=== PATIENT | female | born 1935 | race Caucasian/White ===

== ENCOUNTER 2019-12-27 15:02 | Inpatient (IN) | payer MEDICARE, SELFPAY ==
[2019-12-27] VITALS (10 sets, daily range): BP systolic 116–204; BP diastolic 37–65; PULSE 32–80; RESP 11–26; TEMP 36.8–37; O2SAT 90–100; BMI 34.6
--- NOTE | ~2019-12-27 | XR_ITS ---
XR chest 1V portable 12/27/2019 16:21 Indication: Altered mental status. Dyspnea. Procedure: AP portable chest Comparison: 03/10/2007 Findings: Cardiomegaly with mild interstitial edema. No pleural effusion or pneumothorax. No acute os seous abnormality. Impression: 1: Cardiomegaly with mild interstitial edema. Reviewed, dictated and finalized at location B. Impression: 1: Cardiomegaly with mild interstitial edema.
--- NOTE | ~2019-12-27 | XR_ITS ---
EXAMINATION: XR chest 1V portable DATE: 12/28/2019 18:08 INDICATION: Pacer placement. TECHNIQUE: A single frontal view of the chest was obtained on 2 radiographs. COMPARISON: Chest single view 12/27/2019 FINDINGS: A calcified right lung nodule and calcified right hilar lymph nodes are consistent with old granulomatous disease. No pleural effusion or pneumothorax. The heart size is normal. There is a lef t chest wall pacer with leads in the right atrium and right ventricle. IMPRESSION: 1. No acute cardiopulmonary disease. Reviewed, dictated and finalized at location A.
--- NOTE | ~2019-12-27 | CT_ITS ---
EXAMINATION: CT brain wo con DATE: 12/27/2019 15:50 INDICATION: Unresponsive. Found by neighbor. Altered mental status. TECHNIQUE: Computed tomography (CT) of the head was performed without intravenous contrast. The mA wa s adjusted according to patient size. Iterative reconstruction technique was employed. Exam dose: 68 1.00 mGy-cm total exam DLP. COMPARISON: None FINDINGS: No intracranial mass lesion or hemorrhage or cerebrovascular accident is evident. No midlin e shift or mass effect. Ventricular size is within normal limits. No subdural or epidural hematoma. Bilateral carotid siphon internal carotid artery calcifications. The mastoid air cells are normally developed and aerated. The paranasal sinuses are normally develope d and aerated. Bilateral hyperostosis frontalis interna. No skull fracture or bone destruction is detected. IMPRESSION: No skull fracture or acute intracranial abnormality Reviewed, dictated and finalized at Location A. Reviewed, dictated and finalized at location A.
--- NOTE | ~2019-12-27 | XR_ITS ---
EXAMINATION: XR chest 2V DATE: 12/29/2019 07:31 INDICATION: 24 hours postpacemaker insertion TECHNIQUE: frontal and lateral views of the chest were obtained. COMPARISON: Chest radiograph dated 12/28/2019 FINDINGS: Dual lead pacemaker seen with leads projecting over the expected locations of the right atrium and ri ght ventricle. Cardiomediastinal silhouette is normal. Dense mitral annular calcification. Tiny pleural effusion at the posterior sulcus of one of the lungs on the lateral projection, likely r ight. Calcified nodule at the right lung base consistent with old granulomatous disease. No other air space opacities, pulmonary edema or pneumothorax. Moderate degenerative skeletal changes at the bilat eral shoulders and upper lumbar spine. IMPRESSION: 1. Tiny right pleural effusion. Reviewed, dictated and finalized at location A.
--- NOTE | 2019-12-27 15:10 | ECG_ITS ---
Measurements Intervals [place] Rate: 45 P: LA: 0 QRS: -61 QRSD: 162 T: 94 QT: 538 QTc: 469 Interpretive Statements SINUS RHYTHM WITH 2ND DEGREE AV BLOCK, MOBITZ TYPE I RIGHT BUNDLE BRANCH BLOCK LEFT ANTERIOR FASCICULAR BLOCK BASELINE ARTIFACT- II, III, AVR, AVF, V2-V3 ABNORMAL ECG Electronically Signed On 12-27-2019 15:28:16 CDT by Maulik Seymour D.O.
--- NOTE | 2019-12-27 15:21 | ED.GENADULT ---
HPI - General Adult General Chief complaint: Unspecified Stated complaint: AMS Time Seen by Provider: 12/27/19 15:04 Source: RN notes reviewed History of Present Illness HPI narrative: Patient presents to emergency department via EMS for altered mental status. The history is per the patient's that is present. States that approximately 3:00 today they were sitting down when the patient seemed to tense up almost with mild seizure-like activity and went unresponsive. When EMS initially arrived the patient was unresponsive blood sugar was noted to be 160 and transferred to the ER for further evaluation. Per the the patient had no complaints prior to today. Patient was noted to be in heart block upon arrival to the ER Related Data Home Medications Medication Instructions Recorded Confirmed Caltrate 600 plus D 12/27/19 Centrum Silver 12/27/19 aspirin [Adult Low Dose Aspirin] 12/27/19 docusate sodium [Stool Softener] PO 12/27/19 duloxetine 60 mg PO DAILY 12/27/19 escitalopram oxalate 20 mg PO DAILY 12/27/19 fesoterodine [Toviaz] 8 mg PO DAILY 12/27/19 omeprazole 40 mg PO DAILY 12/27/19 simvastatin 10 mg PO HS 12/27/19 ziprasidone HCl 60 mg PO BID 12/27/19 ziprasidone HCl 80 mg PO BID 12/27/19 Allergies Allergy/AdvReac Type Severity Reaction Status Date / Time Penicillins Allergy Unknown Unverified 09/26/08 14:15 Sulfa (Sulfonamide Allergy Unknown Unverified 09/26/08 14:15 Antibiotics) tramadol Allergy Unknown Unverified 09/26/08 14:15 Review of Systems Review of Systems: ROS unobtainable: Yes unobtainable due to medical condition PMFSH Past Medical History Medical History Depression Tremor 2nd to depression meds Social History Social History (Updated 12/27/19 @ 17:33 by Evens Myles DO) Smoking status: Never smoker Exam Narrative: Exam Narrative: APPEARANCE: No acute distress, nontoxic, resting in bed EYES: Marija, eyes moving back and forth slowly HEENT: Normocephalic, atraumatic, OMM RESPIRATORY: No respiratory distress Clear to auscultation bilaterally with no rhonchi wheezing or rales. CARDIOVASCULAR: Bradycardic without murmurs rubs or gallops. ABDOMINAL: Soft, nontender, nondistended, no rebound or guarding MUSCULOSKELETAl: No clubbing, cyanosis or edema. NEURO: Unresponsive to painful and verbal stimuli, only in bed with eyes open, does not follow commands SKIN:: Warm, dry. No rashes lesions or abrasions Course Course Emergency Course: Patient given atropine with no change in heart rate. Cussed with patient's who is present. States that the patient is a DNR would be comfortable with pacemaker if needed At this time I decided to place the patient externally. The patient did have progressive improvement of her mentation following external pacing. Called and discussed with DIRECTOR OF RETAIL ANALYTICS and Hank for Dr. Branham presentation work-up. Dr. Branham's plans to come to the ER for further evaluation with plan to take patient for temporary pacer Called discussed with Dr. Wright presentation work-up he agrees with admission to the ICU Discussed with SERGIO Bell for Dr Contreras presentation work-up agrees with admission at this time Patient progressed became more awake awake and alert initially able to follow simple commands of squeezing and is now able to tell me her name and that she is at the hospital and answering questions. Discussed with patient plan for Patent Agent for pacer Discussed with patient and family results of workup and diagnosis. Discussed need for admission. Patient and family understand and agree to current treatment plan Vital Signs Vital signs: Vital Signs Pulse Rate 44 L 12/27/19 15:09 Respiratory Rate 18 12/27/19 15:09 Blood Pressure 204/43 H 12/27/19 15:09 Pulse Oximetry 90 12/27/19 15:09 Pulse Rate 60 12/27/19 15:54 Respiratory Rate 23 H 12/27/19 15:54 Blood Pressure 1
[2019-12-27 15:23] LABS: Base Excess ABG -6.5 mEq/l (+/-2.0); Fractional Inspired Oxygen 28 %; HCO3 ABG 18.3 mEq/l (22.0-26.0); Oxygen Content ABG 13.6 %vol (16.0-22.0); Oxygen Saturation ABG 93.8 % (95.0-100.0); Oxyhemoglobin 90.2 % THb (90.0-100.0); PCO2 ABG 33.6 mmHg (35.0-45.0); PO2 FiO2 Ratio Arterial Blood 2.54 %; Total Hemoglobin 10.7 g/dL (12.0-18.0); pH ABG 7.353 (7.350-7.450)
[2019-12-27 15:25] LABS: Device NASAL CANNULA; Modified Allen's Test Pass; Site Drawn RIGHT RADIAL
--- NOTE | 2019-12-27 15:26 | PC.NURSE ---
Patient received 0.5mg atropine at 1516 per EDP verbal order
--- NOTE | 2019-12-27 15:29 | PC.NURSE ---
Pacing at 60HR and 50mA per EDP verbal order.
[2019-12-27 15:31] LABS: Basophils Absolute Auto 0.1 K/mm3 (0.0-0.1); Basophils Percent Auto 0.7 % (0.2-1.2); Eosinophils Absolute Auto 0.3 K/mm3 (0-0.3); Eosinophils Percent Auto 3.8 % (0-4.4); Hemoglobin 10.9 g/dL (12.0-15.0); Immature Granulocyte Absolute 0.02 K/mm3 (0.00-0.031); Immature Granulocyte Percent A 0.2 % (0-0.5); Lymphocytes Absolute Auto 1.13 K/mm3 (0.9-3.2); Lymphocytes Percent Auto 12.5 % (18.3-44.2); Mean Corpuscular Hemoglobin 29.9 pg (26-34); Mean Corpuscular Volume 90.4 fl (80-100); Mean Platelet Volume 11.6 fl (7.4-10.4); Monocytes Absolute Auto 0.9 K/mm3 (0.1-0.6); Monocytes Percent Auto 10.2 % (2.6-8.5); Neutrophils Absolute Auto 6.6 K/mm3 (1.3-6.7); Neutrophils Percent Auto 72.6 % (45.5-73.1); Platelet Count Result 289 k/mm3 (150-375); Red Blood Count 3.65 M/mm3 (4.2-5.4); Red Cell Distribution Width 13.9 % (11.5-14.5)
[2019-12-27 15:46] LABS: Lactic Acid Reflex 1.5 mmol/L (0.7-2.1)
[2019-12-27 15:47] LABS: INR 1.1; Prothrombin Time 13.4 Seconds (11.1-14.7)
[2019-12-27 15:48] LABS: Partial Thromboplastin Time 46.4 SECONDS (22.3-36.8)
[2019-12-27 16:24] LABS: Alanine Aminotransferase 23 U/L (4-35); Albumin Level 3.4 g/dL (3.5-5.1); Alkaline Phosphatase 92 U/L (38-126); Aspartate Amino Transferase 36 U/L (14-36); Bilirubin,Total 0.6 mg/dL (0.2-1.3); Blood Urea Nitrogen 38 mg/dL (7-17); Calcium 8.9 mg/dL (8.4-10.2); Carbon Dioxide 26 mmol/L (22-30); Chloride 104 mmol/L (98-107); Creatine Kinase 36 U/L (30-135); Estimated CRCL calculation 26 ml/min; Estimated Glomerular Filt Rate 36; Glucose 169 mg/dL (65-105); Magnesium 1.4 mg/dL (1.6-2.3); Potassium 4.3 mmol/L (3.4-5.0); Sodium 136 mmol/L (137-145)
[2019-12-27 16:39] LABS: Troponin I 0.058 ng/mL (0.000-0.034)
[2019-12-27 16:42] LABS: Add Urine Microscopic? YES; Appearance Urine Clear (Clear); Bacteria Urine 1+ /hpf; Bilirubin Urine Negative (Negative); Blood Urine Negative (Negative); Color Urine Yellow (Yellow); Glucose Urine UA 1+ mg/dL (Negative); Ketones Urine Negative (Negative); Leukocyte Esterase Ur 1+ LEU/UL (Negative); Mucus Urine Rare /lpf; Nitrate Urine Negative (Negative); Protein Urine 3+ mg/dL (Negative); Specific Grav Ur 1.016 (1.001-1.035); Squamous Epithelial Cell Urine Few /hpf (Few); WBC Urine >75 /hpf
--- NOTE | 2019-12-27 16:54 | WPDCN ---
Assessment and Plan Assessment and plan (1) Mobitz type 2 second degree heart block: Code(s): I44.1 - Atrioventricular block, second degree Status: Acute Assessment and Plan: Patient with symptomatic second-degree AV block, need a emergent temporary pacemaker for hemodynamic stability. Mental status has improved somewhat. Will discuss permanent pacemaker implant with the patient which she has refused in the past. She is also DNR which I will discuss but she and Kehinde agreed to rescind that during the temporary pacemaker implant. Will check troponins, echo, and make sure nothing else is going on. Not on any rate limiting medications. (2) Altered mental status: Code(s): R41.82 - Altered mental status, unspecified Status: Acute Assessment and Plan: Probably secondary to her poor cardiac output related to heart block. HPI Data of Consult Date/Time: 12/27/19 16:54 Primary Care Provider: AUTO TIRE RECAPPER PHYSICIAN Consult Narrative Narrative: Sana Mooney is a 84 year old female whom I was asked to see emergently for syncope, altered mental status and a heart rate of 30. She is is 2nd degree AVB and Dr. Myles applied external pacing which has helped her mental status. Her head CT was neg for bleed. She is being taken emergently to the dairy and food laboratory assistant for a temporary pacemaker. The patient's spouse Kehinde, says that her sharepoint admin at [facility] (Dr. Banegas? ) has recommend pacemaker to her but she has refused and wanted to be a DNR. She had episode of syncope about 6 months ago. Otherwise she leads a pretty normal life, up and around the house with no particular problems. Her main problem has been depression.No history of any other heart trouble, chest pain or shortness of breath. The patient currently denies any chest pain or shortness of breath. Today she was sitting in a chair, looked up and said she felt bad, and passed out. Kehinde said there was some seizure-like activity and she became unresponsive. EMS was called. pick up truck driver is Dr. Tracie Pro, [facility]' Review of Systems Review of Systems: Narrative: Much of the review of systems is obtained from the patient's spouse, Kehinde and the ER MD Dr. Myles. ROS unobtainable: Yes unobtainable due to mental status Eyes: Eyes: Reports no additional eye complaints ENT: Denies nasal congestion Cardiovascular: Cardiovascular: Denies chest pain, Denies pedal edema, Denies lightheadedness and Denies palpitations Respiratory: Respiratory: Denies chest congestion, Denies cough and Denies dyspnea Gastrointestinal: Gastrointestinal: Denies abdominal pain Musculoskeletal: Musculoskeletal: Reports arthralgias Integumentary/Breasts: Skin/Breast: Reports system reviewed and no additional complaints, except as docu Neurologic: Reports confusion ( altered mental status today.) Comments: Patient has a tremor but not Parkinson's disease; apparently secondary to her depression meds. FOR[facility]LY [facility], LATER [facility] Past Medical History Medical History (Updated 12/27/19 @ 18:39 by Felicity Branham MD) Depression Restless leg syndrome Tremor 2nd to depression meds Surgical History Surgical History (Updated 12/27/19 @ 18:39 by Felicity Branham MD) H/O: hysterectomy For uterine cancer Family History Family History (Updated 12/27/19 @ 18:40 by Felicity Branham MD) Father Acute myocardial infarction Mother Old age Social History Social History (Updated 12/27/19 @ 18:40 by Felicity Branham MD) Social History: Used to work for the [employer]. to Kehinde. No children. Smoking status: Never smoker Alcohol intake: never Substance use: never Gender identity (if verbalized by the patient): Female Spiritual care concerns: No Meds Home Medications and Allergies Home Medications Medication Instructions Recorded Confirmed Type Caltrate 600 plus D 12/27/19 History Centrum Silver 12/27/19 History aspirin [Adult
--- NOTE | 2019-12-27 16:54 | WPDMODSED ---
Moderate Sedation Note-Pt Data Patient Data Diagnosis: Syncope, 2nd degree AVB Present Complaint: Syncope, altered mental status Procedure to be performed/Plan: Temporary transvenous pacemaker Allergies Allergy/AdvReac Type Severity Reaction Status Date / Time Penicillins Allergy Unknown Unverified 09/26/08 14:15 Sulfa (Sulfonamide Allergy Unknown Unverified 09/26/08 14:15 Antibiotics) tramadol Allergy Unknown Unverified 09/26/08 14:15 Home Medications Medication Instructions Recorded Confirmed Type Caltrate 600 plus D 12/27/19 History Centrum Silver 12/27/19 History aspirin [Adult Low Dose Aspirin] 12/27/19 History docusate sodium [Stool Softener] PO 12/27/19 History duloxetine 60 mg PO DAILY 12/27/19 History escitalopram oxalate 20 mg PO DAILY 12/27/19 History fesoterodine [Toviaz] 8 mg PO DAILY 12/27/19 History omeprazole 40 mg PO DAILY 12/27/19 History simvastatin 10 mg PO HS 12/27/19 History ziprasidone HCl 60 mg PO BID 12/27/19 History ziprasidone HCl 80 mg PO BID 12/27/19 History Current Medications: Active Medications Magnesium Sulfate (Magnesium Sulf 2 Gm/Water 50ml) 2 gm in 50 mls @ 50 mls/hr IVPB ONCE ONE Stop: 12/27/19 17:24 Sedation/Anesthesia: No previous sedation/anesthesia problems (including family history). [facility] Past Medical History Medical History (Updated 12/27/19 @ 16:56 by Felicity Branham MD) Depression Tremor 2nd to depression meds Mod Sed Physical Exam Physical Exam Pre Procedural Exam: Normal: Eyes, Ears, Nose, Neck, Throat, Airway, Lungs, Heart Size, Heart Rhythm, Abdomen, Liver, Extremities and Skin and Variation: Appearance (Appears lethargic but answers some questions), Heart Rate (Bradycardic) and Neuro Exam (Cognitive impairment, tremor) Hours since solid foods: 4 Hours since liquid intake: 4 Internal Medicine - PN: Obj Da Vital Signs Vital Signs: Vital Signs - 24 hr 12/27/19 15:09 12/27/19 15:21 12/27/19 15:23 Pulse Rate 44 L 32 L 32 L Respiratory Rate 18 11 L Blood Pressure 204/43 H 170/37 H Pulse Oximetry 90 92 12/27/19 15:26 12/27/19 15:54 Pulse Rate 32 L 60 Respiratory Rate 18 23 H Blood Pressure 170/37 H 137/47 L Pulse Oximetry 92 100 Meds/Results Medications: Active Medications Generic Name Dose Route Start Last Admin Trade Name Levi PRN Reason Stop Dose Admin Magnesium Sulfate 2 gm in 50 mls @ 50 mls/hr 12/27/19 16:25 Magnesium Sulf 2 Gm/Water 50ml IVPB 12/27/19 17:24 ONCE ONE Radiology Results: ITS Impressions Head CT 12/27/19 15:52 IMPRESSION: No skull fracture or acute intracranial abnormality Chest X-Ray 12/27/19 16:22 Impression: 1: Cardiomegaly with mild interstitial edema. Labs CBC & Chem 7: 12/27/19 15:19 12/27/19 16:06 Labs: Laboratory Results - last 24 hr 12/27/19 12/27/19 12/27/19 15:15 15:19 15:19 WBC 9.0 RBC 3.65 L Hgb 10.9 L Hct 33.0 L MCV 90.4 MCH 29.9 MCHC 33.0 RDW 13.9 Plt Count 289 MPV 11.6 H Immature Gran % (Auto) 0.2 Neut % (Auto) 72.6 Lymph % (Auto) 12.5 L [place] % (Auto) 10.2 H Eos % (Auto) 3.8 Baso % (Auto) 0.7 Lymph # (Auto) 1.13 [place] # (Auto) 0.9 H Eos # (Auto) 0.3 Baso # (Auto) 0.1 Abs Immat Gran (auto) 0.02 Absolute Neuts (auto) 6.6 Absolute Nucleated RBC 0.0 Nucleated RBC % 0.0 PT INR APTT Puncture Site Right radial ABG pH 7.353 ABG pCO2 33.6 L ABG pO2 71.0 L ABG PO2/FiO2 Ratio 2.54 ABG HCO3 18.3 L ABG O2 Saturation 93.8 L ABG O2 Content 13.6 L ABG Base Excess -6.5 A-a Gradient 89.0 Oxyhemoglobin 90.2 Total Hemoglobin 10.7 L O2 Delivery Device Nasal cannula O2 Liters/Min 2.0 FiO2 28 Sodium Potassium Chloride Carbon Dioxide BUN Creatinine Estim Creat Clear Calc Estimated GFR Glucose Lactic Acid 1.5 Calcium Magnesium
--- NOTE | 2019-12-27 17:08 | PC.NURSE ---
ICU hemodialysis charge nurse notified of patient and given report at this time.
[2019-12-27] MEDS: MAGNESIUM SULF 2 GM/WATER 50ML 2 GM/50 ML BAG IVPB (17:36)
--- NOTE | 2019-12-27 18:12 | ADMGEN ---
This patient, Saan Mooney, was admitted to Intensive Care Unit-8 at 1805. Patient/family oriented to hospital policies and general routines including ID bracelet, bed and alarms, visiting hours, pain management, procedures, bathroom and other care routines, personal items, smoking policy, room service/diet, and visiting hours. Valuables list has been completed. Information on how to activate the Rapid Response Team has been discussed. Patient/Family are encouraged to report perceived risks to care and to ask questions if they do not understand what they are told or what they should do.
--- NOTE | 2019-12-27 20:31 | P.OP_ITS ---
Procedure Note - Detailed Date of procedure: 12/27/19 Pre-op diagnosis: 2nd Degree Heart Block Post-op diagnosis: same Procedure performed: Placement of a temporary transvenous pacemaker Description of procedure: The patient was brought from the ER to the cardiac catheterization lab with external pacing present. The right femoral area was prepped and draped in the usual fashion. She was given lidocaine for local anesthesia. The right femoral vein was punctured and cannulated with a 6 [place] sheath. The balloon tipped temporary pacemaker was advanced up to the right atrium through the tricuspid valve and manipulated into the right ventricular apex. Pacemaker threshold in multiple positions was not ideal, with intermittent capture at 5 volts and loss of capture at 3 volts but despite multiple positions is the best I could do, and she was strongly pacing most of the time appropriately. The temporary pacemaker was discontinued.. The patient's pacemaker was set at a rate of 80, 8 volts. The sheath was sutured in place and a sterile dressing applied. She was taken to the ICU in stable condition. Anesthesia: local Surgeon: Felicity Branham MD Estimated blood loss (mL): 5 Drains: No Packing: No Pathology: none sent Complications: None Condition: stable Disposition: ICU
[2019-12-27 20:45] LABS: Troponin I 0.111 ng/mL (0.000-0.034)
[2019-12-28] VITALS (16 sets, daily range): BP systolic 103–170; BP diastolic 49–69; PULSE 60–80; RESP 10–21; TEMP 36.4–37.3; O2SAT 92–100
[2019-12-28 00:02] LABS: Troponin I 0.123 ng/mL (0.000-0.034)
--- NOTE | 2019-12-28 01:30 | PM.IMHP ---
H&P: HPI History of Present Illness Chief complaint: Altered mental status. Narrative: Sana Ramos is an 84-year-old female with asthma, hyperlipidemia, depression, and GERD who presented to the emergency department earlier this afternoon via EMS for evaluation of altered mental status. Over the past couple of days she reports feeling lightheaded, mainly when standing up and walking, but other than that she has been in her usual state of health. This morning she remembers eating breakfast and then retiring to take a nap, but does not remember much thereafter until after being at the hospital for some time. The patient's , Kehinde, reports that not long prior to arrival the patient suddenly tensed up and went unresponsive, and she seem to shake for short period of time. On EMS arrival she was unresponsive and glucose was noted to be 160. Upon arrival to the emergency department, she was found to be in second-degree heart block with a rate in the 30s, with improvement in her mentation with external pacing. She is now status post temporary transvenous pacemaker per Dr. Branham and she is resting comfortably. The only complaint she has at the time my evaluation is some mild tingling in her right hand. She denies headache, vertigo, auditory and visual changes, focal weakness, dysarthria, facial asymmetry, chest pain, pleuritic pain, palpitations, fluttering, shortness of breath, nausea, vomiting, and sweats. Review of Systems Review of Systems: Narrative: Twelve systems were reviewed with pertinent positives and negatives as per HPI. No recent travel or sick contacts. She denies cough and shortness of breath. She will get dyspnea on exertion, mainly when walking up flights of steps etc. no orthopnea, PND, or lower extremity edema. It sounds like she had a syncopal episode about 6 months ago but she did not really have a workup for that. She is followed by a machine sign writer at [facility] for her heart murmur, and she has an echocardiogram yearly. It is been previously documented that there was some discussion in the past about a possible pacemaker, however the patient does not recall that discussion. She has occasional dysphagia, mainly with solids, and has previously had esophageal dilatation. In fact she was scheduled for an EGD right about the time elective procedures were placed on hold due to the COVID outbreak. Except as documented, all other systems were reviewed and are negative. FOR[facility]LY [facility], LAT[facility] Past Medical History Medical History (Updated 12/28/19 @ 02:36 by Arabella Muñoz PA-C) Asthma Depression Gastroesophageal reflux disease History of uterine cancer Hyperlipidemia Osteoarthritis Overactive bladder Restless leg syndrome Tremor Secondary to medications taken for depression. Surgical History Surgical History (Updated 12/28/19 @ 02:26 by Arabella Muñoz PA-C) History of bilateral hip replacements History of hysterectomy For uterine cancer. Family History Family History Father Acute myocardial infarction Mother Old age Social History Social History (Updated 12/28/19 @ 02:33 by Arabella Muñoz PA-C) Social History: The patient lives with her in [place]. She is originally from [place], [place] and she attended college in [employer] [facility] [facility]. 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 She smoked socially for about 20 years, maybe a pack a week, and quit 1969. No alcohol or illicit substance use. She designates her , Kehinde, as her surrogate decision maker and she wishes to be a full code, however would not want to be on long-term life support. Spiritual care concerns: No Meds Home Medications and Allergies Home Medications Medication Instructions Recorded Confirmed Type Caltrate 600 plu
[2019-12-28 04:33] LABS: Basophils Percent Auto 0.7 % (0.2-1.2); Eosinophils Absolute Auto 0.2 K/mm3 (0-0.3); Eosinophils Percent Auto 2.5 % (0-4.4); Hemoglobin 9.9 g/dL (12.0-15.0); Immature Granulocyte Absolute 0.01 K/mm3 (0.00-0.031); Immature Granulocyte Percent A 0.2 % (0-0.5); Lymphocytes Absolute Auto 0.92 K/mm3 (0.9-3.2); Lymphocytes Percent Auto 15.1 % (18.3-44.2); Mean Corpuscular Hemoglobin 29.8 pg (26-34); Mean Corpuscular Volume 90.4 fl (80-100); Mean Platelet Volume 10.8 fl (7.4-10.4); Monocytes Absolute Auto 0.7 K/mm3 (0.1-0.6); Monocytes Percent Auto 10.8 % (2.6-8.5); Neutrophils Absolute Auto 4.3 K/mm3 (1.3-6.7); Neutrophils Percent Auto 70.7 % (45.5-73.1); Platelet Count Result 221 k/mm3 (150-375); Red Blood Count 3.32 M/mm3 (4.2-5.4); Red Cell Distribution Width 13.6 % (11.5-14.5); White Blood Count 6.1 K/mm3 (4.5-10.0)
[2019-12-28 04:47] LABS: Blood Urea Nitrogen 35 mg/dL (7-17); Carbon Dioxide 27 mmol/L (22-30); Chloride 105 mmol/L (98-107); Estimated Glomerular Filt Rate 43; Glucose 101 mg/dL (65-105); Magnesium 1.9 mg/dL (1.6-2.3); Potassium 4.6 mmol/L (3.4-5.0); Sodium 137 mmol/L (137-145)
[2019-12-28 06:02] LABS: Folic Acid > 20.0 ng/mL (2.76->20)
[2019-12-28 06:37] LABS: Iron 32 ug/dL (37-170)
[2019-12-28 06:47] LABS: Percent Iron Saturation 12 % (20-50)
[2019-12-28 07:04] LABS: Thyroid Stimulating Hormone Reflex 0.809 uIU/mL (0.465-4.68)
[2019-12-28] MEDS: PANTOPRAZOLE 40 MG TABLET PO (08:28)
[2019-12-28] MEDS: SIMVASTATIN 10 MG TABLET PO (08:28)
[2019-12-28] MEDS: levoFLOXacin 500 MG/D5W 100 ML 500 MG/100 ML BAG 100 MG IVPB (08:29)
[2019-12-28] MEDS: LEVOTHYROXINE SODIUM 112 MCG, LEVOTHYROXINE SODIUM 25 MCG 137 MCG PO (08:29)
--- NOTE | 2019-12-28 09:00 | ECHO_ITS ---
Patient Info Name: Sana Ramos Age: 84 years : 1935 Gender: Female Ht: 59 in Wt: 171 lbs BSA: 1.84 m2 HR: 80 bpm BP: 122 / 65 mmHg Heart Rhythm: Paced Technical Quality: Good Exam Date: 12/28/2019 11:38 AM Exam Location: [facility] Patient Status: Inpatient Admit Date: 12/27/2019 Staff Ordering Physician: Anne Marie Mckinney APRN Dbas: Arpan Gil RDCS, RT Attending Provider: Felicity Branham MD Referring Physician: aHnk CONTRERAS; Exam Type: CA echo doppler color flow Study Info Indications I45.89 - Other specified conduction disorders Complete two-dimensional, color flow and Doppler transthoracic echocardiogram is performed. Summary 1. Left ventricle is of normal size with moderate concentric hypertrophy. There is hyperdynamic left ventricular systolic function with estimated ejection fraction greater than 70%. Grade 2 diastolic dysfunction is noted. The average global longitudinal strain is -15%, suggestive of early systolic dysfunction. 2. Left atrial chamber dimension is moderately enlarged. 3. Right atrial chamber dimension is mildly enlarged. 4. There is moderate to severe aortic valve stenosis with a peak velocity of 341 cm/s, mean gradient of 20 mmHg, and aortic valve area of 0.8 cm2. 5. There is mild aortic valve regurgitation. 6. There is mild mitral valve regurgitation. 7. There is very mild mitral valve stenosis with a valve area of 2.8 cm2 and a mean gradient of 3 mmHg. 8. There is mild tricuspid valve regurgitation. 9. Moderate pulmonary hypertension, estimated pulmonary arterial systolic pressure is 49 mmHg. 10. There is moderate aortic atherosclerosis. Left Ventricle Left ventricular chamber dimension is normal. Left ventricular systolic function is hyperdynamic, estimated at >70%. There is moderately increased left ventricular wall thickness. Left ventricular septal wall motion is normal. The left ventricular diastolic function is grade II diastolic dysfunction. Global longitudinal strain is mildly elevated at 15 %. Right Ventricle Right ventricular chamber dimension is normal. Right ventricular systolic function is normal. Left Atria Left atrial chamber dimension is moderately enlarged. Right Atria Right atrial chamber dimension is mildly enlarged. Aortic Valve The aortic valve is trileaflet. There is no aortic valve sclerosis. There is moderate to severe aortic valve stenosis with a peak velocity of 341 cm/s, mean gradient of 20 mmHg, and aortic valve area of 0.8 cm2. There is mild aortic valve regurgitation. There is severe aortic valve calcification. Pulmonic Valve The pulmonic valve is normal. There is no pulmonic valve stenosis. There is trace pulmonic regurgitation. Mitral Valve The mitral valve has calcified annulus. There is mild mitral valve regurgitation. The mitral valve annulus is severely calcified. There is very mild mitral valve stenosis with a valve area of 2.8 cm2 and a mean gradient of 3 mmHg. Tricuspid Valve The tricuspid valve leaflets are normal. There is no significant tricuspid valve stenosis. There is mild tricuspid valve regurgitation. Moderate pulmonary hypertension, estimated pulmonary arterial systolic pressure is 49 mmHg. Pericardium/Pleural The pericardium appears normal. There is no pericardial effusion. Inferior Vena Cava Normal inferior vena cava with >50% collapse upon inspiration consistent with Empty right atrial pressure, 10 mmHg. Aorta
--- NOTE | 2019-12-28 09:23 | WPDCNINT ---
Assessment and Plan Assessment and plan (1) Mobitz type 2 second degree heart block: Code(s): I44.1 - Atrioventricular block, second degree Status: Acute Assessment and Plan: Status post temporary transvenous pacemaker placement Currently pacing at 80. Adequate blood pressure Continue ICU monitoring Plan for permanent pacemaker today (2) Altered mental status: Code(s): R41.82 - Altered mental status, unspecified Status: Acute Assessment and Plan: Likely from hypertension from heart block Resolved at this time patient is alert oriented (3) Hypomagnesemia: Code(s): E83.42 - Hypomagnesemia Status: Acute Assessment and Plan: Improved with replacement (4) UTI (urinary tract infection): Code(s): N39.0 - Urinary tract infection, site not specified Status: Acute Assessment and Plan: Urine and blood cultures IV Levaquin (5) MEL (acute kidney injury): Code(s): N17.9 - Acute kidney failure, unspecified Status: Acute Assessment and Plan: Likely from cardiogenic shock from bradycardia Now blood pressure adequate IV fluids not given due to pulmonary edema Monitor urine output and electrolytes Monitor creatinine (6) Pulmonary edema: Code(s): J81.1 - Chronic pulmonary edema Status: Acute Assessment and Plan: On admission on chest x-ray Patient now saturating well on room air Monitor Additional Plan DVT prophylaxis -start heparin Nutrition -NPO Code Status - Full Code Total Critical Care Time - 30 minutes Due to a high probability of clinically significant, life threatening deterioration, the patient required my highest level of preparedness to intervene emergently and I personally spent this critical care time directly and personally managing the patient. This critical care time included obtaining a history; examining the patient; pulse oximetry; ordering and review of studies; arranging urgent treatment with development of a management plan; evaluation of patient's response to treatment; frequent reassessment; and discussions with other providers. It was exclusive of separately billable procedures and treating other patients and teaching time. Please see Assessment and Plan section and the rest of the note for further information on patient assessment and treatment Requirements Engineer Consult Note Consult date: 12/28/19 Time Seen: 09:00 HPI: Sana Ramos is a 84 year old female was brought to ED by EMS with altered mental status. In ER patient was found to be in heart block and hypertensive. Patient was taken to labor training manager and if right fem temporary pacemaker was place leading to improvement in heart rate and blood pressure. Following procedure patient was admitted to ICU for further management. She herself does not know why she was brought to ER and unable to provide history. She did tell me that she felt weak, lightheaded and sleepy prior to that. She took a nap in her recliner. No loss of consciousness per patient. At this time patient feels fine and does not have any complaints. No recent travel or sick contact. No change in sensation of taste or smell. No exposure to patients diagnosed with COVID. No fever body aches chest pain shortness of breath of cough. No dizziness lightheadedness or headaches. No nausea vomiting diarrhea abdominal pain Review system was positive for frequency but negative for dysuria or foul-smelling urine. No hematuria hematemesis or melena Review of Systems Review of Systems: All systems reviewed & are unremarkable except as noted in HPI and below (HPI) [facility] Past Medical History Medical History Asthma Depression Gastroesophageal reflux disease History of uterine cancer Hyperlipidemia Osteoarthritis Overactive bladder Restless leg syndrome Tremor Secondary to medications taken for depression. Surgical History Surgic
--- NOTE | 2019-12-28 14:42 | WPDHPUPDATE1 ---
History and Physical Update Update Date/Time: 12/28/19 14:42 History and Physical has been reviewed, including an updated exam of the patient.. She is much more alert today but otherwise no changes in her condition. Echo showed good LV fxn but aortic stenosis and mild mitral stenosis. Risks, benefits, and alternatives have been discussed and questions answered. Patient agrees to proceed with procedure.
--- NOTE | 2019-12-28 14:50 | WPDMODSED ---
Moderate Sedation Note-Pt Data Patient Data Diagnosis: Symptomatic second-degree AV block Present Complaint: Syncope secondary to AV block Procedure to be performed/Plan: Conscious sedation Venogram Implantation of permanent dual-chamber pacemaker Allergies Allergy/AdvReac Type Severity Reaction Status Date / Time Penicillins Allergy Unknown Hives Verified 12/28/19 08:25 Sulfa (Sulfonamide Allergy Unknown Hives Verified 12/28/19 08:25 Antibiotics) tramadol Allergy Unknown Hives Verified 12/28/19 08:25 Home Medications Medication Instructions Recorded Confirmed Type aspirin [Adult Low Dose Aspirin] 81 mg PO DAILY 12/27/19 12/28/19 History escitalopram oxalate 20 mg PO DAILY 12/27/19 12/28/19 History fesoterodine [Toviaz] 8 mg PO DAILY 12/27/19 12/28/19 History omeprazole 40 mg PO DAILY 12/27/19 12/28/19 History simvastatin 10 mg PO HS 12/27/19 12/28/19 History ziprasidone HCl 60 mg PO BID 12/27/19 12/28/19 History ziprasidone HCl 80 mg PO BID 12/27/19 12/28/19 History acetaminophen [Acetaminophen Extra 500 mg PO Q6H PRN 12/28/19 12/28/19 History Strength] albuterol sulfate [Ventolin HFA] 2 puff INHALATION Q8H PRN 12/28/19 12/28/19 History calcium carbonate-vitamin D3 1 tablet PO DAILY 12/28/19 12/28/19 History [Caltrate with Vitamin D3] docusate sodium 50 mg PO DAILY 12/28/19 12/28/19 History duloxetine 60 mg PO DAILY 12/28/19 12/28/19 History levothyroxine 137 mcg PO DAILY 12/28/19 12/28/19 History dikomgpm-fdx-pbbi-FA-lutein 1 tablet PO DAILY 12/28/19 12/28/19 History [Centrum Silver Women] Current Medications: Active Medications Heparin Sodium (Porcine) (Heparin Sodium) 5,000 units SUB-Q Q12HR KENNETH Last Admin: 12/28/19 11:18 Dose: Not Given Documented by: Levofloxacin/Dextrose (Levaquin 500 Mg/D5w 100 Ml) 500 mg in 100 mls @ 100 mls/hr IVPB Q48HR KENNETH Levothyroxine Sodium 112 mcg/ (Levothyroxine Sodium 25 mcg) 137 mcg PO DAILY@0630 [facility] Last Admin: 12/28/19 08:29 Dose: 137 mcg Documented by: Pantoprazole Sodium (Protonix) 40 mg PO [facility] Last Admin: 12/28/19 08:28 Dose: 40 mg Documented by: [facility]ocor) [facility] Admin: 12/28/19 08:28 Dose: 10 mg Documented by: Sedation/Anesthesia: No previous sedation/anesthesia problems (including family history). [facility] Past Medical History Medical History Asthma Depression Gastroesophageal reflux disease History of uterine cancer Hyperlipidemia Osteoarthritis Overactive bladder Restless leg syndrome Tremor Secondary to medications taken for depression. Surgical History Surgical History History of bilateral hip replacements History of hysterectomy For uterine cancer. Family History Family History Father Acute myocardial infarction Mother Old age Social History Social History Social History: The patient lives with her in [place]. She is originally from [place], [place] and she attended college in [place] [employer] [place]. 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 She smoked socially for about 20 years, maybe a pack a week, and quit 1969. No alcohol or illicit substance use. She designates her , Kehinde, as her surrogate decision maker and she wishes to be a full code, however would not want to be on long-term life support. Spiritual care concerns: No Mod Sed Physical Exam Physical Exam Pre Procedural Exam: Normal: Appearance, Eyes, Ears, Nose, Neck, Throat, Airway, Lungs, Heart Size, Heart Rate, Heart Rhythm, Neuro Exam, Abdomen, Extremities and Skin (Skin in the left prepectoral area is free of disease) Hours since solid foods: 12 Hours s
--- NOTE | 2019-12-28 15:05 | PC.NURSE ---
Patient to Cardiac r and d lab technician via bed.
[2019-12-28 15:14] LABS: Glucose Point of Care 182 (65-105)
--- NOTE | 2019-12-28 17:27 | PM.PROC ---
Procedure Note - Detailed Date of procedure: 12/28/19 Pre-op diagnosis: Altered mental status. Symptomatic second-degree AV block Syncope and altered mental status secondary to above Post-op diagnosis: same Procedure performed: Conscious sedation Venogram Implantation of a permanent dual chamber pacemaker Description of procedure: UNDERLYING RHYTHM: Asystole SITE: Left prepectoral area MEDICATIONS GIVEN IN CONTROL INTEGRATION ENGINEER: Ancef 1 gram IV piggyback CONSCIOUS SEDATION: Assessment: The patient has no history of anesthesia problems. The patient's oropharynx is clear. The patient was deemed to be a good candidate for conscious sedation. The patient had continuous hemodynamic monitoring during the procedure. Start time: 1536 Completion time: 1706 Total conscious sedation time: 90 minutes Medications: Versed 2 mg, fentanyl 150 mcg IV push Trained observer:Ro Mireles rN Outcome: The patient tolerated the procedure well with no complications. PROCEDURE: After informed consent , the patient was brought to the label sewer and the left prepectoral area was prepped and draped in usual fashion . The patient received preop antibiotic and conscious sedation . The left prepectoral area was anesthetized with lidocaine . A venogram was performed which showed the course of the left subclavian vein which was patent. Next a skin incision was made and carried down to the prepectoral fascia. Hemostasis was obtained using electrocautery . The pacer pocket was formed. The left subclavian vein was easily accessed with the micropuncture technique, and a J-tip guide wire was passed into the Inferior vena cava under fluoroscopic guidance . The needle was withdrawn . An 8 Tanzanian Tanzanian safety sheath was passed over the wire, and a 2nd wire was introduced into the inferior vena cava. The sheath was withdrawn and then a 6 Tanzanian sheath was passed over 1 wire , and the right ventricular lead was passed into the inferior vena cava under fluoroscopic guidance . The lead was then prolapsed through the tricuspid valve and advanced to the septum. When suitable sensing and pacing thresholds were obtained, it was screwed into place. No extra cardiac stimulation was obtained using 10 volts. The sheath was withdrawn. Next, another 6 Tanzanian safety sheath was passed over the Second wire, the wire withdrawn, and the right atrial lead was passed into the inferior vena cava under fluoroscopic guidance. Right atrial lead was then pulled back to the level of the right atrium and manipulated into the right atrial appendage . When suitable sensing and pacing thresholds were obtained , it was screwed into place . No extra cardiac stimulation was obtained using 10 volts. The sheath was withdrawn. Both leads were secured to the prepectoral fascia using 2-0 silk over their respective sleeves. The pocket was cleansed with antibiotic containing solution . The pulse generator was introduced into the operative field, and both leads were secured into the generator . A gentle tug showed the leads were securely fastened. The device was introduced into the pocket. The temporary pacing wire was withdrawn under fluoroscopic guidance. The subcutaneous tissues were closed in a double layer fashion with interrupted sutures, using 2-0 Vicryl suture , and the skin was closed in a continuous fashion using 4-0 Vicryl suture in a continuous fashion. The area was cleansed, and an Aquacel dressing was applied . The right femoral venous sheath was removed and hemostasis was obtained using local pressure. The patient tolerated the procedure well with no complications. PACEMAKER INFORMATION: Pulse generator: [employer] Assurity MRI 2272, Serial # [id number] Right atrial lead: [employer] 2087 TC/ 46, serial [id number] Right ventricular lead: [employer] 2087 PC/ 5 2, serial number [id number] MEASURED DATA: Right
--- NOTE | 2019-12-28 17:40 | PC.NURSE ---
Patient returned to room following pace maker insertion. Report received from VIKRAM Maynard.
--- NOTE | 2019-12-28 18:30 | PM.IMPN ---
Progress Note: A&P Assessment and Plan (1) Mobitz type 2 second degree heart block: Code(s): I44.1 - Atrioventricular block, second degree Status: Acute Assessment and Plan: Status post temporary transvenous pacemaker per Dr. Branham, who recommends permanent pacemaker today. (2) Altered mental status: Code(s): R41.82 - Altered mental status, unspecified Status: Acute Assessment and Plan: [place] to be due to poor cardiac output related to heart block. At this time she is alert and oriented x4. (3) Renal failure: Code(s): N19 - Unspecified kidney failure Status: Acute Assessment and Plan: Likely due to poor cardiac output given heart block however she appears a bit dry on exam. Given mild interstitial edema on chest x-ray, will hold IV fluids at this time and encourage p.o. intake. Creatinine 1.2 today and if does not fall further than possible renal sonogram (4) Hypomagnesemia: Code(s): E83.42 - Hypomagnesemia Status: Acute Assessment and Plan: Magnesium will be replaced and monitored. (5) Bacteriuria with pyuria: Code(s): R82.71 - Bacteriuria; R82.81 - Pyuria Status: Acute Assessment and Plan: She has no urinary symptoms and thus no treatment is indicated. (6) Normocytic anemia: Code(s): D64.9 - Anemia, unspecified Status: Acute Assessment and Plan: Check iron studies , B12, retake count, serum protein electrophoresis (7) Depression: Code(s): F32.9 - Major depressive disorder, single episode, unspecified Status: Acute Assessment and Plan: Continue home medication. Those that are non formulary maybe brought in from home. (8) Right hand paresthesia: Code(s): R20.2 - Paresthesia of skin Status: Acute Assessment and Plan: With no other reports of paresthesias or focal deficits. Would consider possible TIA/CVA however unable to obtain brain MRI. Neurologic checks will be performed q.4 hours. Subjective Date/time seen: 12/28/19 18:30 Interval history: Date of visit 12/28. [age] year female admitted with altered mental status found to have Mobitz type 2 av block and temporary pacer with placed. Currently 100% paced and scheduled to permanent pacer placed today. Presently no complaints alert and oriented doing well Exam Narrative: Exam Narrative: Blood pressure 136/76 pulse is 80-100% paced saturating 94% on room air General: Well-developed elderly female supine in bed in no distress. HEENT: PERRL, . Neck: Supple. Respiratory: Lungs are clear to auscultation bilaterally. Cardiovascular: Regular rate and rhythm with S1-S2. 2/6 systolic murmur heard at the upper sternal border. Gastrointestinal: Abdomen is soft, nontender, and nondistended with positive bowel sounds. Skin: Warm and dry. No rash or lesions on limited exam. Extremities: No edema. Radial and pedal pulses intact. Neurological: Alert and oriented at the time of my evaluation. No gross focal deficits . Psychiatric: Pleasant and cooperative with normal mood and affect. Judgment and insight intact. Objective Data Vital Signs Vital Signs: Vital Signs - 24 hr 12/27/19 20:00 12/27/19 21:00 12/27/19 22:00 Temperature 37.0 C 36.8 C Pulse Rate 80 80 80 Respiratory Rate 20 21 H 21 H Blood Pressure 131/62 123/65 123/65 Pulse Oximetry 96 96 97 12/28/19 00:00 12/28/19 02:00 12/28/19 04:00 Temperature 36.4 C 36.6 C Pulse Rate 80 80 80 Respiratory Ra
[2019-12-28] MEDS: SODIUM CHLORIDE 0.9% IV 1,000 ML 50 ML IV CONT (18:31)
[2019-12-28] MEDS: HEPARIN SODIUM 5,000 UNITS/ML VIAL 5000 UNITS SUB-Q (20:44)
[2019-12-29] VITALS (17 sets, daily range): BP systolic 131–167; BP diastolic 45–78; PULSE 60–72; RESP 12–21; TEMP 36.4–37.2; O2SAT 96–99
[2019-12-29 05:06] LABS: Immature Reticulocyte Fraction 25.5 % (3.0-15.9); Reticulocyte Hemoglobin Conten 30.8 pg (28.2-35.7); Reticulocyte Percent 2.26 % (0.7-4.3); Reticulocytes Absolute 0.07 B/L (32.2-175.7)
[2019-12-29 05:45] LABS: Blood Urea Nitrogen 34 mg/dL (7-17); Calcium 8.9 mg/dL (8.4-10.2); Carbon Dioxide 23 mmol/L (22-30); Chloride 105 mmol/L (98-107); Estimated Glomerular Filt Rate 36; Glucose 101 mg/dL (65-105); Lactate Dehydrogenase 599 U/L (313-618); Potassium 4.6 mmol/L (3.4-5.0); Sodium 133 mmol/L (137-145)
[2019-12-29] MEDS: LEVOTHYROXINE SODIUM 112 MCG, LEVOTHYROXINE SODIUM 25 MCG 137 MCG PO (06:52)
[2019-12-29] MEDS: PANTOPRAZOLE 40 MG TABLET PO (09:13)
[2019-12-29] MEDS: SIMVASTATIN 10 MG TABLET PO (09:13)
[2019-12-29] MEDS: HEPARIN SODIUM 5,000 UNITS/ML VIAL 5000 UNITS SUB-Q ×2 (09:14→20:33)
--- NOTE | 2019-12-29 12:44 | WPDINTPN ---
Progress Note: A&P Assessment and Plan (1) Mobitz type 2 second degree heart block: Code(s): I44.1 - Atrioventricular block, second degree Status: Acute Assessment and Plan: Status post permanent pacemaker placement Currently pacing at 60 with adequate blood pressure Postprocedure chest x-ray today shows only Tiny right pleural effusion. (2) Altered mental status: Code(s): R41.82 - Altered mental status, unspecified Status: Acute Assessment and Plan: Likely from hypotension from heart block Resolved at this time patient is alert oriented (3) Hypomagnesemia: Code(s): E83.42 - Hypomagnesemia Status: Acute Assessment and Plan: Improved with replacement (4) UTI (urinary tract infection): Code(s): N39.0 - Urinary tract infection, site not specified Status: Acute Assessment and Plan: Urine and blood cultures ordered and pending IV Levaquin (5) MEL (acute kidney injury): Code(s): N17.9 - Acute kidney failure, unspecified Status: Acute Assessment and Plan: Likely from cardiogenic shock from bradycardia Now blood pressure adequate IV fluids not given on presentation due to pulmonary edema Baseline unknown but creatinine has been essentially stable since patient's admission including BUN level Monitor urine output and electrolytes Monitor creatinine (6) Pulmonary edema: Code(s): J81.1 - Chronic pulmonary edema Status: Acute Assessment and Plan: On admission on chest x-ray Patient now saturating well on room air Monitor (7) Hypothyroidism: Code(s): E03.9 - Hypothyroidism, unspecified Status: Acute Assessment and Plan: Levothyroxine was resumed Additional Plan DVT prophylaxis -Subcutaneous heparin Code Status - Full Code Transfer out of ICU today once seen by Cardiology Subjective Date/time seen: 12/29/19 12:44 Patient had permanent pacemaker placed yesterday evening and is feeling well and denies any new complaints. No pain reported at the site Currently paced at 60 with adequate blood pressure Patient denies fever, chest pain, shortness of breath, cough, nausea vomiting, abdominal pain, diarrhea, headache or constipation. Review of Systems Review of Systems: All systems reviewed & are unremarkable except as noted in HPI and below (HPI) Exam Narrative: Exam Narrative: General: Pt is alert awake and in NAD Lungs/Chest: Trachea central Clear BS B/L, No crackles or wheezing. Left anterior chest has a dressing over the pacemaker, Cardiac: RRR. Normal S1 S2. Systolic murmur present Circulation: Pedal pulses are intact and symmetrical. Abdomen: Normal bowel sounds.. Soft. NT. ND. Extremities: No clubbing, cyanosis or edema. Warm. left arm is in sling : Ortega in place Neurologic: Follows commands. Moves all 4 extremities alert oriented x3 Skin: No Rash Objective Data Vital Signs Vital Signs: Vital Signs - 24 hr 12/28/19 14:00 12/28/19 17:45 12/28/19 18:00 Temperature 37.1 C Pulse Rate 80 60 60 Respiratory Rate 12 18 15 Blood Pressure 137/53 L 133/63 157/65 H Pulse Oximetry 97 92 98 12/28/19 18:15 12/28/19 18:30 12/28/19 19:00 Temperature Pulse Rate 60 60 60 Respiratory Rate 11 L 11 L 13 Blood Pressure 166/55 H 153/53 H 170/56 H Pulse Oximetry 97 99 100 12/28/19 20:00 12/28/19 22:00 12/28/19 22:59 Temperature Pulse Rate 60 60 60 Respiratory Rate 17 Blood Pressure 165/49 H Pulse Oximetry 96 12/29/19 00:00 12/29/19 02:00 12/29/19 04:00 Temperature 37.2 C 37.1 C Pulse Rate 60 60 60 Respiratory Rate 16 13 18 Blood Pressure 141/78 H 152/57 H 167/49 H Pulse Oximetry 98 97 97 12/29/19 06:00 12/29/19 08:00 12/29/19 10:00 Temperature 37.2 C Pulse Rate 60 60 60 Respiratory Rate 12 16 21 H Blood Pressure 163/52 H 131/55 L 155/50 H Pulse Oximetry 96 96 98 Intake/Output Intake/Output: Intake & Output 12/26/19 12/27/19
--- NOTE | 2019-12-29 16:08 | PM.PNCARD ---
Progress Note: A&P Assessment and Plan (1) Mobitz type 2 second degree heart block: Code(s): I44.1 - Atrioventricular block, second degree Status: Acute Assessment and Plan: Symptomatic second-degree AV block. Temporary pacemaker was placed on the night of admission. [place] ([employer]) dual-chamber pacemaker placed by Dr Branham on 12/28/2019. Chest x-ray this morning revealed no pneumothorax. A very tiny right pleural effusion. Pacemaker interrogation revealed a normally functioning pacemaker. She was 96% atrially paced 100% ventricularly paced. Left subclavian Aquacel dressing intact with no drainage. No swelling or bleeding. No ecchymosis. Activity restrictions were reviewed. (2) Altered mental status: Code(s): R41.82 - Altered mental status, unspecified Status: Acute Assessment and Plan: Resolved (3) Elevated blood pressure reading without diagnosis of hypertension: Code(s): R03.0 - Elevated blood-pressure reading, without diagnosis of hypertension Status: Acute Assessment and Plan: Blood pressures in the 140-160 range. Will start Metoprolol succinate 25 mg daily. First dose now so we can monitor her blood pressure response. Further titration of any antihypertensives will be done as an outpatient . Additional Plan OK to discharge from cardiac standpoint. Will downgraded IMU status and increase her activity. See discharge instructions for follow-up. Plan discussed with Dr. Vasquez [id number] 12/29/2019 Time Spent With Patient Time with patient: 15 - 25 minutes Subjective Date/time seen: 12/29/19 16:08 Interval history: Follow-up for: Altered mental status found to have Mobitz type 2 heart block, status post [employer] dual-chamber pacemaker 12/28/2019, CKD, hypomagnesemia, normocytic anemia Date of service: 12/29/2019 Subjective: Feeling much better. Denied chest discomfort, shortness of breath, lightheadedness, palpitations. A little shaky walking to the bathroom. Review of Systems Eyes: Eyes: Reports no additional eye complaints ENT: Denies nasal congestion Cardiovascular: Cardiovascular: Denies chest pain, Denies pedal edema, Denies lightheadedness, Denies palpitations and Denies dyspnea Respiratory: Respiratory: Denies chest congestion, Denies cough and Denies dyspnea Gastrointestinal: Gastrointestinal: Denies abdominal pain Musculoskeletal: Musculoskeletal: Reports arthralgias Integumentary/Breasts: Skin/Breast: Reports system reviewed and no additional complaints, except as docu Neurologic: Reports confusion (Improving day by day.) Psychiatric: Psychiatric: Reports confusion (Improving day by day.) Endocrine: Endocrine: Denies palpitations Hematologic/Lymphatic: Hematologic/Lymphatic: Denies easy bleeding and Denies easy bruising Exam Narrative: Exam Narrative: Elderly lady sitting up in bed eating lunch. at bedside. No distress. Const: General: cooperative, comfortable and no acute distress Nutritional Appearance: overweight Orientation/consciousness: patient oriented x3 HENMT: General nose exam: no epistaxis Mouth: Yes moist mucous membranes abnormal Eyes: EOM: EOMs intact bilaterally Neck: Neck: supple Chest: Other: Left subclavian Aquacel dressing intact. No bleeding, no drainage, no swelling, no ecchymosis. Resp: Effort & Inspection: normal respiratory effort Auscultation: clear to auscultation bilaterally Cardio: Rate: regular rate Rhythm: regular rhythm Heart sounds: Murmur heart sound present (2/6 NIKO upper sternal border) Peripheral pulses: Peripheral pulses 2+ throughout GI: Inspection: non-distended GI Palp: Yes Soft to palpation Auscultation: normal bowel sounds Skin: General skin exam: normal color Neuro: General: patient oriented x3 Cranial nerves: Yes hard of hearing Cognition (Neuro): normal cognition Other: Appe
--- NOTE | 2019-12-29 17:51 | PM.IMPN ---
Progress Note: A&P Assessment and Plan (1) Mobitz type 2 second degree heart block: Code(s): I44.1 - Atrioventricular block, second degree Status: Acute Assessment and Plan: Status post pacemaker per 12/27, doing well PT/OT. (2) Altered mental status: Code(s): R41.82 - Altered mental status, unspecified Status: Acute Assessment and Plan: [place] to be due to poor cardiac output related to heart block. At this time she is alert and oriented x4. (3) Renal failure: Code(s): N19 - Unspecified kidney failure Status: Acute Assessment and Plan: Likely due to poor cardiac output given heart block however she appears a bit dry on exam. Given mild interstitial edema on chest x-ray, so no extra fluid given Creatinine 1.4 today and suspect is her normal (4) Hypomagnesemia: Code(s): E83.42 - Hypomagnesemia Status: Acute Assessment and Plan: Magnesium will be replaced and monitored. (5) Bacteriuria with pyuria: Code(s): R82.71 - Bacteriuria; R82.81 - Pyuria Status: Acute Assessment and Plan: She has no urinary symptoms and thus no treatment is indicated.and culture mixed organisms only (6) Normocytic anemia: Code(s): D64.9 - Anemia, unspecified Status: Acute Assessment and Plan: iron studies look to be more anemia of chronic disease, B12 normal, retic count low, serum protein electrophoresis pending (7) Depression: Code(s): F32.9 - Major depressive disorder, single episode, unspecified Status: Acute Assessment and Plan: Continue home medication. Those that are non formulary maybe brought in from home. (8) Right hand paresthesia: Code(s): R20.2 - Paresthesia of skin Status: Acute Assessment and Plan: With no other reports of paresthesias or focal deficits. Would consider possible TIA/CVA however unable to obtain brain MRI. Neurologic checks will be performed q.4 hours. Subjective Date/time seen: 12/29/19 17:51 Interval history: Date of visit 12/28. [age] female admitted with altered mental status found to have Mobitz type 2 av block and temporary pacer with placed. Currently 100% paced and had permanent pacer placed 12/27. Presently no complaints alert and oriented doing well Exam Narrative: Exam Narrative: Blood pressure 156/66 pulse is 60-100% paced saturating 94% on room air. HEENT: PERRL, . Neck: Supple. Respiratory: Lungs are clear to auscultation bilaterally. Cardiovascular: Regular rate and rhythm with S1-S2. 2/6 systolic murmur heard at the upper sternal border. Gastrointestinal: Abdomen is soft, nontender, and nondistended with positive bowel sounds. Skin: Warm and dry. No rash or lesions on limited exam. Extremities: No edema. Radial and pedal pulses intact. Neurological: Alert and oriented at the time of my evaluation. No gross focal deficits . Psychiatric: Pleasant and cooperative with normal mood and affect. Judgment and insight intact. Objective Data Vital Signs Vital Signs: Vital Signs - 24 hr 12/28/19 18:00 12/28/19 18:15 12/28/19 18:30 Temperature Pulse Rate 60 60 60 Respiratory Rate 15 11 L 11 L Blood Pressure 157/65 H 166/55 H 153/53 H Pulse Oximetry 98 97 99 12/28/19 19:00 12/28/19 20:00 12/28/19 22:00 Temperature Pulse Rate 60 60 60 Respiratory Rate 13 Blood Pressure 170/56 H Pulse Oximetry 100 12/28/19 22:59 12/29/19 00:00 12/29/19 02:00 Temperat
--- NOTE | 2019-12-29 18:05 | PC.NURSE ---
This patient, Sana Ramos, was transferred to [facility] on 12/29/19 at 1805. Personal belongings sent with patient. Report given to VIKRAM Mercado. Appropriate documentation sent with patient.
[2019-12-29] MEDS: METOPROLOL SUCCINATE EXT REL 25 MG TABCR PO (20:33)
[2019-12-30] VITALS (9 sets, daily range): BP systolic 149–153; BP diastolic 49–56; PULSE 60; RESP 18–20; TEMP 35.7–36.1; O2SAT 94–99
[2019-12-30 04:53] LABS: Basophils Absolute Auto 0.1 K/mm3 (0.0-0.1); Basophils Percent Auto 0.6 % (0.2-1.2); Eosinophils Absolute Auto 0.3 K/mm3 (0-0.3); Eosinophils Percent Auto 3.3 % (0-4.4); Hematocrit 27.4 % (37.0-47.0); Immature Granulocyte Absolute 0.02 K/mm3 (0.00-0.031); Immature Granulocyte Percent A 0.3 % (0-0.5); Lymphocytes Absolute Auto 0.83 K/mm3 (0.9-3.2); Lymphocytes Percent Auto 10.5 % (18.3-44.2); Mean Corpuscular HGB Conc 32.8 g/dl (32-36); Mean Corpuscular Hemoglobin 29.6 pg (26-34); Mean Corpuscular Volume 90.1 fl (80-100); Mean Platelet Volume 10.9 fl (7.4-10.4); Monocytes Absolute Auto 0.9 K/mm3 (0.1-0.6); Monocytes Percent Auto 11.6 % (2.6-8.5); Neutrophils Absolute Auto 5.8 K/mm3 (1.3-6.7); Neutrophils Percent Auto 73.7 % (45.5-73.1); Platelet Count Result 213 k/mm3 (150-375); Red Blood Count 3.04 M/mm3 (4.2-5.4); Red Cell Distribution Width 13.5 % (11.5-14.5); White Blood Count 7.9 K/mm3 (4.5-10.0)
[2019-12-30 05:04] LABS: Blood Urea Nitrogen 28 mg/dL (7-17); Calcium 8.9 mg/dL (8.4-10.2); Carbon Dioxide 26 mmol/L (22-30); Chloride 102 mmol/L (98-107); Estimated Glomerular Filt Rate 39; Glucose 108 mg/dL (65-105); Potassium 4.3 mmol/L (3.4-5.0); Sodium 132 mmol/L (137-145)
[2019-12-30] MEDS: LEVOTHYROXINE SODIUM 112 MCG, LEVOTHYROXINE SODIUM 25 MCG 137 MCG PO (06:20)
[2019-12-30] MEDS: THERAPEUTIC MULTIVITAMINS/MINERALS TAB (*BKC) 1 TABLET PO (08:28)
[2019-12-30] MEDS: ESCITALOPRAM OXALATE 10 MG TABLET 20 MG PO (08:28)
[2019-12-30] MEDS: METOPROLOL SUCCINATE EXT REL 25 MG TABCR PO (08:28)
[2019-12-30] MEDS: PANTOPRAZOLE 40 MG TABLET PO (08:28)
[2019-12-30] MEDS: DULoxetine HCL 60 MG CAPSULE.DR PO (08:29)
[2019-12-30] MEDS: DOCUSATE SODIUM LIQ 100 MG/10 ML UDC 50 MG PO (08:29)
[2019-12-30] MEDS: HEPARIN SODIUM 5,000 UNITS/ML VIAL 5000 UNITS SUB-Q (08:29)
[2019-12-30] MEDS: SIMVASTATIN 10 MG TABLET PO (08:29)
[2019-12-30] MEDS: CIPROFLOXACIN 250 MG TABLET PO (09:52)
--- NOTE | 2019-12-30 16:38 | PM.DS ---
DS: Admitting Diagnosis Admitting Diagnosis Admitting Diagnosis: Atrioventricular block, second degree DS: Summary Time Spent with Patient Time attestation: Total time spent providing and/or coordinating discharge services: 35 minutes Exam Narrative: Exam Narrative: Condition on discharge Blood pressure 150/56 pulse is 60 saturating 99% on room air afebrile Lungs clear CV regular rate rhythm Pacer site bandaged and clean Abdomen soft nontender Extremities without edema distal pulses are 2+ DS: Data Data Completed and Pending Labs on day of discharge: Labs from last 24 hours 12/30/19 12/30/19 04:04 04:04 WBC 7.9 RBC 3.04 L Hgb 9.0 L Hct 27.4 L MCV 90.1 MCH 29.6 MCHC 32.8 RDW 13.5 Plt Count 213 MPV 10.9 H Immature Gran % (Auto) 0.3 Neut % (Auto) 73.7 H Lymph % (Auto) 10.5 L [place] % (Auto) 11.6 H Eos % (Auto) 3.3 Baso % (Auto) 0.6 Lymph # (Auto) 0.83 L [place] # (Auto) 0.9 H Eos # (Auto) 0.3 Baso # (Auto) 0.1 Abs Immat Gran (auto) 0.02 Absolute Neuts (auto) 5.8 Absolute Nucleated RBC 0.0 Nucleated RBC % 0.0 Sodium 132 L Potassium 4.3 Chloride 102 Carbon Dioxide 26 BUN 28 H Creatinine 1.30 H Estim Creat Clear Calc Not Reportable Estimated GFR 39 L Glucose 108 H Calcium 8.9 Preliminary micro results at discharge 12/27/19 15:20 Blood Culture - Preliminary Blood 12/27/19 16:46 Blood Culture - Preliminary Blood Discharge Plan Discharge Attending physician on discharge: Georges Rivero Consulting providers: Marito Mark ; Felicity Branham ; Ambrose Wright Discharging Clinician: Georges Rivero Patient Disposition: Home Health Service Activity: other - see discharge instructions Diet: low sodium and low cholesterol Wound Care Instructions: other - see discharge instructions Discharge Instructions: Per Care Coordination: [facility] will contact you prior to their first visit. [facility] will follow for RN and PT/OT eval and treat. [facility] can be contacted at [phone]. CARDIOLOGY DISCHARGE INSTRUCTIONS: ACTIVITY: No driving until you are seen in the office for your incision check. No lifting, pushing or pulling more than 5 pounds with left arm for 1 MONTH No lifting left arm above shoulder height for 1 MONTH Wear immobilizer only if you are unable to remember the above activity restrictions. Recommend that it be worn at night. You may shower AFTER you are seen for incision check on December 04 but no tub baths, swimming pool or hot tub for 1MONTH FOLLOW-UP: Follow-up with Primary Care Provider 1-2 weeks Follow up with [facility], [place] ([facility]) office at [facility] [address] to have dressing removed, incision checked and pacemaker checked on January 04, 2020 at 2:00 p.m. Please arrive by 1:45 p.m. for your appointment. Bring photo ID and insurance card. with Dr Branham on January 29, 2020 at 3:45 p.m.. Please arrive by 3:30 p.m. for your appointment. Bring photo ID, insurance card(s) and current medication list. Please complete the new patient form on both sides and bring the form to your follow-up appointment with Nancy Kenney in the [facility] on February 14, 2020 at 3:00 p.m.. Please arrive by 2:50 p.m. for your appointment. Bring photo ID and insurance card. Sign up for [employer] The activation code is on your appointment confirmation WOUND CARE: Do not attempt to remove dressing. There is a certain technique to removing this dressing. Keep dressing dry When you are able to shower AFTER you are seen for your incision check in the office do not rub or scrub the incision. Pat dry after shower. NO lotions, powders, creams or ointments are to be applied to the incision A small amount of tenderness, puffiness and bruising around the site is normal. Call if
--- NOTE | 2019-12-30 16:42 | PM.DS ---
DS: Admitting Diagnosis Admitting Diagnosis Admitting Diagnosis: Atrioventricular block, second degree DS: Discharge Diagnosis Discharge Diagnosis (1) Mobitz type 2 second degree heart block: Code(s): I44.1 - Atrioventricular block, second degree Status: Acute Assessment and Plan: Status post temporary transvenous pacemaker per Dr. Branham, and placed dual chamber permanent pacemaker 12/27 Checked by pacemaker rep and functioning well 12/28 with chest x-ray showing good position. Up with PT OT and able to be discharged today 718 (2) Altered mental status: Code(s): R41.82 - Altered mental status, unspecified Status: Acute Assessment and Plan: [place] to be due to poor cardiac output related to heart block. At time of discharge she is alert and oriented x4. (3) Renal failure: Code(s): N19 - Unspecified kidney failure Status: Acute Assessment and Plan: Likely due to poor cardiac output given heart block however she appears a bit dry on exam. Given mild interstitial edema on chest x-ray, held IV fluids and encourage p.o. intake. Creatinine 1.3 day of discharge presumed her normal renal failure stage 3 (4) Hypomagnesemia: Code(s): E83.42 - Hypomagnesemia Status: Acute Assessment and Plan: Magnesium was replaced (5) Bacteriuria with pyuria: Code(s): R82.71 - Bacteriuria; R82.81 - Pyuria Status: Acute Assessment and Plan: She has no urinary symptoms initially and culture grew multiple Gram-negative then low colony count. She did have a Ortega catheter and after removal was having frequency and urgency the she was placed on antibiotics ciprofloxacin 250 b.i.d. for 7 days. (6) Normocytic anemia: Code(s): D64.9 - Anemia, unspecified Status: Acute Assessment and Plan: Check iron studies for compatible with anemia chronic disease, B12 normal, retic count low, serum protein electrophoresis was pending at the time of discharge Encouraged her to follow-up with her primary care for further evaluation mild anemia (7) Depression: Code(s): F32.9 - Major depressive disorder, single episode, unspecified Status: Acute Assessment and Plan: Continue home medication. (8) Right hand paresthesia: Code(s): R20.2 - Paresthesia of skin Status: Acute Assessment and Plan: With no other reports of paresthesias or focal deficits. Had no recurrences symptomatology and probably secondary to poor cardiac output also DS: Summary Hospital Course Hospital Course: 84-year-old white female admitted with altered mental status and found to have AV block. Was taking for temporary pacemaker and permanent pacer dual chamber was placed on 12/27. Pacemaker checked by company sales representative aircraft on the and follow-up chest x-ray in good position with no pneumo Mental status remains stable and normal post pacemaker placement. [facility] the next week with instructions on activity given. Encouraged follow-up with primary care within the next 3 weeks for follow-up her mild anemia Time Spent with Patient Time attestation: Total time spent providing and/or coordinating discharge services: 35 minutes Exam Narrative: Exam Narrative: Condition on discharge Blood pressure 150/56 pulse 60 saturating 99% on room air afebrile Lungs clear CV regular rate rhythm systolic ejection murmur Pacemaker site clean bandage Abdomen soft nontender Extremities without edema
[2020-01-03 23:02] LABS: Albumin 2.6 g/dL (3.8-4.8); Alpha 1 Globulin 0.4 g/dL (0.2-0.3); Beta 1 Globulin 0.4 g/dL (0.4-0.6); Gamma Globulin 1.1 g/dL (0.8-1.7); Protein, Total 5.7 g/dL (6.1-8.1)
== END 2019-12-30 12:05 | disposition home health service (06) | DRG 242 ==
LOC: ANHED 17:01 → ANHICU 17:12 → ANHIMU 12-30 10:40 → ANHICU 01-01 16:27 → ANHIMU 01-01 16:27
PROVIDERS: Internal Medicine Cardiovascular Disease; Physician Assistant; Admitting Provider Family Medicine; Emergency Provider Emergency Medicine; Visit Provider Internal Medicine
PROC: (CPT 33210; principal; 2019-12-27 17:00)
PROC: 0JH606Z Insertion of Pacemaker, Dual Chamber into Chest Subcutaneous Tissue and Fascia, Open Approach (ICD-10-PCS; CPT 33208; principal; 2019-12-28 13:00)
DX: I44.1 Atrioventricular block, second degree (principal); R57.0 Cardiogenic shock; N17.9 Acute kidney failure, unspecified; J81.1 Chronic pulmonary edema; R41.82 Altered mental status, unspecified; R03.0 Elevated blood-pressure reading, without diagnosis of hypertension; R82.71 Bacteriuria; R82.81 Pyuria; F32.9 Major depressive disorder, single episode, unspecified; D64.9 Anemia, unspecified; R20.2 Paresthesia of skin; J45.909 Unspecified asthma, uncomplicated; E78.5 Hyperlipidemia, unspecified; K21.9 Gastro-esophageal reflux disease without esophagitis; G25.81 Restless legs syndrome; E83.42 Hypomagnesemia; Z87.891 Personal history of nicotine dependence
CPT/HCPCS: 33208; 33210; 36415; 36600; 70450; 71045; 71046; 80048; 80053; 81001; 82550; 82607; 82728; 82746; 82805; 82948; 83540; 83550; 83605; 83615; 83735; 84155; 84165; 84443; 84484; 85025; 85046; 85610; 85730; 87040; 87086; 87088; 93005; 93306; 96365; 97110; 97116; 97161; 97165; 99291; A4565; A9270; C1785; C1894; C1898; J1644; J1956; J2250; J3010; J3370; J3475; J7030; J7040

== ENCOUNTER 2020-05-21 00:56 | Outpatient (CLI) | payer MEDICARE, SELFPAY ==
[2020-05-21 18:51] LABS: SARS-CoV-2 RNA PCR Negative
== END 2020-05-21 00:57 | disposition home or self-care (01) ==
LOC: ANHCOVIDDT 00:56
PROVIDERS: PCP Family Medicine; Visit Provider Internal Medicine Gastroenterology
DX: Z01.812 Encounter for preprocedural laboratory examination (principal); Z20.828 Contact with and (suspected) exposure to other viral communicable diseases
CPT/HCPCS: 87635; C9803; U0003

== ENCOUNTER 2020-05-24 00:54 | Day surgery (SDC) | payer MEDICARE, SELFPAY ==
[2020-05-16 14:22] VITALS: BMI 36.1
[2020-05-17 13:30] VITALS: BMI 36.1
[2020-05-24 09:55] VITALS: BP 158/65; PULSE 60; RESP 18; TEMP 36.6; O2SAT 98
[2020-05-24] MEDS: LACTATED RINGERS 1,000 ML 150 ML IV CONT (10:15)
--- NOTE | 2020-05-24 10:29 | WPDGICN ---
Assessment and Plan Assessment and plan (1) Dysphagia: Code(s): R13.10 - Dysphagia, unspecified Status: Acute Assessment and Plan: Patient has difficulty swallowing. She reports a history of acid reflux for which she takes omeprazole 40 mg p.o. daily. She gives a history of esophageal dilatation. Plan is for follow-up EGD at this time period to assess swallowing difficulties. Possibly for esophageal dilatation. Further recommendations may be given after endoscopy. (2) Bipolar disorder: Code(s): F31.9 - Bipolar disorder, unspecified Status: Acute GI Consult Note Consult date/time: 05/24/20 10:29 HPI: Sana Ramos is a 84 year old female Presents because of difficulty swallowing. Patient states that occasionally when swallowing food will catch in her chest and she will after regurgitated. She is a poor historian. She reports having had an endoscopy 10 years ago that helped her swallowing. She states she may have had a stricture dilated at that. She states she does have heart and states that she takes Prilosec for this 40 mg p.o. daily. She denies any weight loss or bleeding. Family history is noncontributory. Because of her difficulty swallowing she presents for endoscopy. Review of Systems Review of Systems: All systems reviewed & are unremarkable except as noted in HPI and below PMFSH Past Medical History Medical History Asthma Bipolar disorder Depression Gastroesophageal reflux disease Heart block AV second degree History of uterine cancer Hyperlipidemia Osteoarthritis Overactive bladder Restless leg syndrome Tremor Secondary to medications taken for depression. Surgical History Surgical History History of bilateral hip replacements History of hysterectomy For uterine cancer. Family History Family History Father Acute myocardial infarction Mother Old age Social History Social History (Updated 05/23/20 @ 13:52 by Brenda Mcnair) Social History: The patient lives with her in [place]. She is originally from [place], [place] and she attended college in [employer] [facility] [employer] [facility] [facility]. 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 She smoked socially for about 20 years, maybe a pack a week, and quit 1969. No alcohol or illicit substance use. She designates her , Kehinde, as her surrogate decision maker and she wishes to be a full code, however would not want to be on long-term life support. Years smoked: 10 Smoking status: Former smoker Tobacco type: cigarettes Second hand tobacco smoke exposure: No Smoking end date: 06/14/72 Alcohol intake: former Substance use: never Substance use type: does not use Living arrangements: with family Gender identity (if verbalized by the patient): Female Spiritual care concerns: No Meds Home Medications and Allergies Home Medications Medication Instructions Recorded Confirmed Type Toviaz 8 mg PO DAILY 12/27/19 05/17/20 History aspirin [Adult Low Dose Aspirin] 81 mg PO DAILY 12/27/19 05/17/20 History escitalopram oxalate 20 mg PO DAILY 12/27/19 05/17/20 History omeprazole 40 mg PO DAILY 12/27/19 05/17/20 History simvastatin 10 mg PO HS 12/27/19 05/17/20 History ziprasidone HCl 60 mg PO BID 12/27/19 05/17/20 History ziprasidone HCl 80 mg PO BID 12/27/19 05/17/20 History Centrum Silver Women 1 tablet PO DAILY 12/28/19 05/17/20 History acetaminophen [Acetaminophen Extra 1,000 mg PO DAILY 12/28/19 05/17/20 History Strength] albuterol sulfate [Ventolin HFA] 2 puff INHALATION Q8H PRN 12/28/19 05/17/20 History calcium carbonate-vitamin D3 2 tablet PO DAILY 12/28/19 05/17/20 History [Caltrate with Vitamin
--- NOTE | 2020-05-24 10:34 | WPDANESEPP ---
Anes - Eval Pre Procedure Procedure: Operation Date: 05/24/20 11:00 Proposed Procedures p Esophagogastroduodenoscopy - Neftali Lopes MD Date/Time: 05/24/20 10:34 Pre Op Diagnosis: Dysphagia Patient Data Age: 84 Gender: F Height: 1.42 m Weight: 74.5 kg Last Vital Signs Temp 36.6 C 05/24/20 09:55 Pulse 60 05/24/20 09:55 Resp 18 05/24/20 09:55 BP 158/65 H 05/24/20 09:55 Pulse Ox 98 05/24/20 09:55 Allergies Allergy/AdvReac Type Severity Reaction Status Date / Time azithromycin Allergy Severe Swelling Verified 05/24/20 09:54 of Lip/Tongue/Throat levofloxacin [From Levaquin] Allergy Severe Swelling Verified 05/24/20 09:54 of Lip/Tongue/Throat oxycodone [From OxyContin] Allergy Severe Swelling Verified 05/24/20 09:54 of Lip/Tongue/Throat acetaminophen Allergy Intermediate Hives Verified 05/24/20 09:54 [From Darvocet-N] celecoxib [From Celebrex] Allergy Intermediate Unknown Verified 05/24/20 09:54 fentanyl Allergy Intermediate Itching Verified 05/24/20 09:54 lorazepam Allergy Intermediate Unknown Verified 05/24/20 09:54 methadone Allergy Intermediate Hives Verified 05/24/20 09:54 Penicillins Allergy Intermediate Hives Verified 05/24/20 09:54 propoxyphene Allergy Intermediate Hives Verified 05/24/20 09:54 [From Darvocet-N] ropinirole [From Requip] Allergy Intermediate Hives Verified 05/24/20 09:54 Sulfa (Sulfonamide Allergy Intermediate Hives Verified 05/24/20 09:54 Antibiotics) topiramate [From Topamax] Allergy Intermediate Hives Verified 05/24/20 09:54 tramadol Allergy Intermediate Hives Verified 05/24/20 09:54 aripiprazole [From Abilify] Allergy Unknown Unknown Verified 05/24/20 09:54 quetiapine [From Seroquel] Allergy Unknown Unknown Verified 05/24/20 09:54 ranitidine [From Zantac] Allergy Unknown Unknown Verified 05/24/20 09:54 Home Medications Medication Instructions Recorded Confirmed Type Toviaz 8 mg PO DAILY 12/27/19 05/17/20 History aspirin [Adult Low Dose Aspirin] 81 mg PO DAILY 12/27/19 05/17/20 History escitalopram oxalate 20 mg PO DAILY 12/27/19 05/17/20 History omeprazole 40 mg PO DAILY 12/27/19 05/17/20 History simvastatin 10 mg PO HS 12/27/19 05/17/20 History ziprasidone HCl 60 mg PO BID 12/27/19 05/17/20 History ziprasidone HCl 80 mg PO BID 12/27/19 05/17/20 History Centrum Silver Women 1 tablet PO DAILY 12/28/19 05/17/20 History acetaminophen [Acetaminophen Extra 1,000 mg PO DAILY 12/28/19 05/17/20 History Strength] albuterol sulfate [Ventolin HFA] 2 puff INHALATION Q8H PRN 12/28/19 05/17/20 History calcium carbonate-vitamin D3 2 tablet PO DAILY 12/28/19 05/17/20 History [Caltrate with Vitamin D3] docusate sodium 50 mg PO EVERY OTHER DAY 12/28/19 05/17/20 History duloxetine 60 mg PO DAILY 12/28/19 05/17/20 History levothyroxine 137 mcg tablet 137 mcg PO DAILY #90 tablet 05/13/20 05/17/20 Rx omega-3 fatty acids-vitamin E 1 cap PO DAILY 05/17/20 05/17/20 History [Fish Oil] vitamin E 600 unit PO DAILY 05/17/20 05/17/20 History Patient hx anesthesia problems: none Family hx anesthesia problems: none PMFSH Past Medical History Medical History Asthma Bipolar disorder Depression Gastroesophageal reflux disease Heart block AV second degree History of uterine cancer Hyperlipidemia Osteoarthritis Overactive bladder Restless leg syndrome Tremor Secondary to medications taken for depression. Surgical History Surgical History History of bilateral hip replacements History of hysterectomy For uterine cancer. Family History Family History Father Acute myocardial infarction Mother Old age Social History Social History (Updated 05/23/20 @ 13:52 by Brenda Mcnair) Social History: The patient lives with her in [place]. She is [place]
[2020-05-24 10:51] VITALS: BP 152/61; PULSE 60; RESP 21; O2SAT 99
[2020-05-24 11:01] VITALS: BP 161/52; PULSE 60; RESP 21; O2SAT 99
[2020-05-24 11:11] VITALS: BP 151/55; PULSE 60; RESP 20; O2SAT 99
== END 2020-05-24 12:00 | disposition home or self-care (01) ==
PROVIDERS: PCP Family Medicine; Visit Provider Internal Medicine Gastroenterology
PROC: 0DJ08ZZ Inspection of Upper Intestinal Tract, Via Natural or Artificial Opening Endoscopic (ICD-10-PCS; CPT 43235; principal; 2020-05-24 11:00)
DX: R13.10 Dysphagia, unspecified (principal); K21.9 Gastro-esophageal reflux disease without esophagitis; F31.9 Bipolar disorder, unspecified; E78.5 Hyperlipidemia, unspecified; J45.909 Unspecified asthma, uncomplicated; I44.1 Atrioventricular block, second degree; G25.81 Restless legs syndrome; Z85.42 Personal history of malignant neoplasm of other parts of uterus; Z87.891 Personal history of nicotine dependence
CPT/HCPCS: 43235; 43450; J2704; J7120

== ENCOUNTER 2021-11-12 17:17 | Inpatient (IN) | payer MEDICARE, SELFPAY ==
[2021-11-12] VITALS (25 sets, daily range): BP systolic 92–137; BP diastolic 64–92; PULSE 60–111; RESP 15–37; TEMP 37.1–37.7; O2SAT 94–100
--- NOTE | ~2021-11-12 | XR_ITS ---
EXAMINATION: XR fl Dobhoff insert/rad w img DATE: 11/16/2021 13:28 INDICATION: Abdominal insertion TECHNIQUE: A Dobbhoff type feeding tube was advanced into the duodenum utilizing intermittent fluoroscopy. Final image demonstrates the feeding tube in position with the weighted tip tip in the third portion of th e duodenum. The tube was flushed with 10 mL sterile saline and fixed to the nares with adhesive tape. A single fluoroscopic image was recorded. Fluoroscopy exposure time was 3.4 minutes. The DAP for thi s procedure was 22.814 Gycm2. There were no immediate complications. FINDINGS/IMPRESSION: Successful fluoroscopy-guided Dobbhoff feeding tube placement with distal tip in the third portion of the duodenum. Reviewed, dictated and finalized at location A.
--- NOTE | ~2021-11-12 | XR_ITS ---
EXAMINATION: XR barium swallow modified DATE: 11/15/2021 09:50 INDICATION: Aspiration TECHNIQUE: Modified barium esophagram was performed by myself to administered fluoroscopy, in conjun ction with speech pathologist who administered barium in varying consistencies as per speech patholog ist documentation. This was recorded on tape. A single fluoroscopic spot image was recorded. The DAP for this procedure was 1.27 Gycm2. Fluoroscopy exposure time was 1.7 minutes. FINDINGS: Oral stage: Adequate function. Pharyngeal phase: Reduced laryngeal elevation, reduced tongue base retraction, reduced adduction. Laryngeal penetration: Present. Aspiration: Present. Laryngeal sensitivity: Present. IMPRESSION: Abnormal modified barium swallow. Please refer to speech pathologist findings and specifi c feeding recommendations. Reviewed, dictated and finalized at location A. IMPRESSION: Abnormal modified barium swallow. Please refer to speech pathologis t findings and specific feeding recommendations.
--- NOTE | ~2021-11-12 | XR_ITS ---
XR chest 1V portable 11/17/2021 09:17 Indication: Suspicion of aspiration Procedure: AP portable chest Comparison: Comparison to multiple prior studies sequentially, with oldest reviewed study dated 12/28. Findings: Borderline heart size. There is mild interstitial edema. No pleural effusion or pneumothora x. No acute osseous abnormality. Pacemaker leads are in stable position. There is atherosclerosis of the aorta. There are degenerative changes of the shoulders. Impression: 1: Borderline heart size with mild interstitial edema. Reviewed, dictated and finalized at location B. Impression: 1: Borderline heart size with mild interstitial edema.
--- NOTE | ~2021-11-12 | XR_ITS ---
XR chest 1V portable 11/13/2021 09:06 Indication: Shortness of breath Procedure: AP portable chest Comparison: Comparison to multiple prior studies sequentially, with oldest reviewed study dated 12/26. Findings: Cardiomegaly with interstitial edema. No pleural effusion or pneumothorax. Pacemaker leads are in expected position. There is atherosclerosis of the aorta. No acute osseous abnormality. Impression: 1: Cardiomegaly with interstitial edema. Reviewed, dictated and finalized at location A. Impression: 1: Cardiomegaly with interstitial edema.
--- NOTE | ~2021-11-12 | US_ITS ---
US renal BI 11/13/2021 11:07 Procedure: Realtime transabdominal ultrasound of the kidneys and bladder. Indication: Renal failure Comparison: No prior studies for comparison. Findings: Renal echotexture is normal bilaterally without hydronephrosis, contour deforming mass or r enal calculus. The right kidney measures 8.9 cm and left kidney measures 8.8 cm. Bladder not well vi sualized due to catheterization. Examination limited by motion. Impression: 1: Unremarkable renal ultrasound. No stones, masses or hydronephrosis. Reviewed, dictated and finalized at location A. Impression: 1: Unremarkable renal ultrasound. No stones, masses or hydronephrosis.
--- NOTE | ~2021-11-12 | CT_ITS ---
EXAMINATION: CT brain wo con INDICATION: Acute onset confusion COMPARISON: 12/27/2019 TECHNIQUE: Standard unenhanced head CT. The dose-length product (DLP) was 605.33 mGy-cm. The mA was a djusted according to patient size. Iterative reconstruction technique was employed. FINDINGS: Motion artifact significantly limits the examination. There is no acute intraparenchymal he morrhage. No evidence of mass lesion. No evidence of acute infarction. There is mild periventricular and subcortical hypodensity probably related to small vessel ischemic disease. There is mild prominen ce of the sulci and ventricles related to cerebral atrophy. Intracranial calcified cerebral atheroscl erosis is noted. There are no extra-axial collections. There is no mass effect or midline shift. The orbits and soft tissues are unremarkable. The visualized sinuses and mastoid air cells are well aerat ed. IMPRESSION: 1. No acute intracranial abnormality, examination significantly limited by motion artifact. 2. Age related findings. Reviewed, dictated and finalized at location F. IMPRESSION: 1. No acute intracranial abnormality, examination significantly limited by reinier on artifact. 2. Age related findings.
--- NOTE | ~2021-11-12 | XR_ITS ---
EXAMINATION: XR chest 1V portable INDICATION: Pneumonia, shortness of breath TECHNIQUE: Portable AP chest at 0604 hours COMPARISON: 11/13/2021 FINDINGS: Diffuse interstitial and airspace opacities persist with slight improvement. There is no pl eural effusion or pneumothorax. The cardiomediastinal silhouette is stable. A dual-lead cardiac pacem jarek of the left chest wall ends with leads in expected locations. There is advanced osteoarthritis o f the shoulders. IMPRESSION: 1. Diffuse lung disease with slight improvement, consistent with pneumonia versus pulmonary edema. Reviewed, dictated and finalized at location A. IMPRESSION: 1. Diffuse lung disease with slight improvement, consistent with pneumonia vers us pulmonary edema.
--- NOTE | ~2021-11-12 | XR_ITS ---
EXAMINATION: XR chest 1V portable INDICATION: Altered mental status TECHNIQUE: Portable AP chest at 1844 hours COMPARISON: 12/29/2019 FINDINGS: There are minimal opacities of the mid and lower lung zones. There is no pleural effusion o r pneumothorax. The cardiomediastinal silhouette is normal. A there is moderate posterior arthritis o f the shoulders. cardiac pacemaker of the left chest wall ends with leads in expected locations. IMPRESSION: 1. Opacities of the mid and lower lung zones, consistent with pneumonia versus pulmonary edema versus atelectasis. Reviewed, dictated and finalized at location F.
--- NOTE | 2021-11-12 17:58 | ECG_ITS ---
Measurements Intervals [place] Rate: 59 P: 230 RI: 246 QRS: -47 QRSD: 187 T: 97 QT: 483 QTc: 482 Interpretive Statements ELECTRONIC ATRIAL PACEMAKER ELECTRONIC VENTRICULAR PACEMAKER Electronically Signed On 11-12-2021 21:45:01 CDT by Aftab Baum M.D.
--- NOTE | 2021-11-12 18:51 | ED.AMS ---
HPI - Altered Mental Status General Chief Complaint: Altered Mental Status Stated Complaint: confusion today Time Seen by Provider: 11/12/21 18:31 Source: patient and family Mode of arrival: wheelchair Limitations: altered mental status History of Present Illness HPI narrative: This is a 86 year old female that presents to the ER for altered mental status. Per patient's she had been getting more confused throughout the day. She is currently being treated for a UTI with Keflex. No other focalizing symptoms noted. Patient does not answer any questions or follow commands. Related Data Home Medications Medication Instructions Recorded Confirmed ziprasidone HCl 60 mg capsule 60 mg PO BID 12/27/19 09/23/21 acetaminophen 500 mg tablet 1,000 mg PO DAILY 12/28/19 09/23/21 (Acetaminophen Extra Strength) albuterol sulfate 90 mcg/actuation 2 puff inhalation Q8H PRN 12/28/19 09/23/21 aerosol inhaler (Ventolin HFA) Shortness Of Breath Or Wheezing calcium carbonate 600 mg-vitamin 2 tablet PO DAILY 12/28/19 09/23/21 D3 20 mcg (800 unit) tablet (Caltrate with Vitamin D3) docusate sodium 50 mg capsule 50 mg PO EVERY OTHER DAY 12/28/19 09/23/21 duloxetine 60 mg capsule,delayed 60 mg PO DAILY 12/28/19 09/23/21 release multivit with 1 tablet PO DAILY 12/28/19 09/23/21 [id number] 8 mg iron-400 mcg-300 mcg tablet (Centrum Silver Women) omega-3 fatty acids-vitamin E 1 cap PO DAILY 05/17/20 09/23/21 1,000 mg capsule vitamin E 600 unit capsule 600 unit PO DAILY 05/17/20 09/23/21 apixaban 5 mg tablet (Eliquis) 5 mg PO BID 09/23/21 09/23/21 Allergies Allergy/AdvReac Type Severity Reaction Status Date / Time azithromycin Allergy Severe Swelling Verified 10/07/21 14:45 of Lip/Tongue/Throat levofloxacin [From Levaquin] Allergy Severe Swelling Verified 10/07/21 14:45 of Lip/Tongue/Throat oxycodone [From OxyContin] Allergy Severe Swelling Verified 10/07/21 14:45 of Lip/Tongue/Throat acetaminophen Allergy Intermediate Hives Verified 10/07/21 14:45 [From Darvocet-N] celecoxib [From Celebrex] Allergy Intermediate Unknown Verified 10/07/21 14:45 fentanyl Allergy Intermediate Itching Verified 10/07/21 14:45 lorazepam Allergy Intermediate Unknown Verified 10/07/21 14:45 methadone Allergy Intermediate Hives Verified 10/07/21 14:45 Penicillins Allergy Intermediate Hives Verified 10/07/21 14:45 propoxyphene Allergy Intermediate Hives Verified 10/07/21 14:45 [From Darvocet-N] ropinirole [From Requip] Allergy Intermediate Hives Verified 10/07/21 14:45 Sulfa (Sulfonamide Allergy Intermediate Hives Verified 10/07/21 14:45 Antibiotics) topiramate [From Topamax] Allergy Intermediate Hives Verified 10/07/21 14:45 tramadol Allergy Intermediate Hives Verified 10/07/21 14:45 aripiprazole [From Abilify] Allergy Unknown Unknown Verified 10/07/21 14:45 quetiapine [From Seroquel] Allergy Unknown Unknown Verified 10/07/21 14:45 ranitidine [From Zantac] Allergy Unknown Unknown Verified 10/07/21 14:45 Review of Systems Review of Systems: ROS unobtainable: Yes unobtainable due to mental status PMFSH Past Medical History Medical History (Updated 11/13/21 @ 03:49 by Annika Mitchell PA-C) Asthma Bipolar disorder Depression Gastroesophageal reflux disease Heart block AV second degree History of uterine cancer Hyperlipidemia Hypertensive kidney disease Hypothyroidism (acquired) Nonrheumatic aortic (valve) stenosis Osteoarthritis Overactive bladder Restless leg syndrome Tremor Secondary to medications taken for depression. Surgical History Surgical History History of bilateral hip replacements History of hysterectomy For uterine cancer. Family History Family History Father Acute myocardial infarction Mother Old age Social History Social History (Updated 10/07/21 @ 14:4
[2021-11-12] MEDS: SODIUM CHLORIDE 0.9% IV 1,000 ML 1000 ML (18:53)
[2021-11-12 18:56] LABS: Basophils Absolute Auto 0.1 K/mm3 (0.0-0.1); Basophils Percent Auto 0.7 % (0.2-1.2); Eosinophils Absolute Auto 0.1 K/mm3 (0-0.3); Hematocrit 36.4 % (37.0-47.0); Hemoglobin 11.4 g/dL (12.0-15.0); Immature Granulocyte Absolute 0.06 K/mm3 (0.00-0.031); Immature Granulocyte Percent A 0.6 % (0-0.5); Lymphocytes Percent Auto 11.6 % (18.3-44.2); Mean Corpuscular HGB Conc 31.3 g/dl (32-36); Mean Corpuscular Hemoglobin 28.9 pg (26-34); Mean Corpuscular Volume 92.4 fl (80-100); Mean Platelet Volume 9.7 fl (7.4-10.4); Monocytes Absolute Auto 1.1 K/mm3 (0.1-0.6); Monocytes Percent Auto 12.1 % (2.6-8.5); Platelet Count Result 261 k/mm3 (150-375); Red Blood Count 3.94 M/mm3 (4.2-5.4); White Blood Count 9.5 K/mm3 (4.5-10.0)
[2021-11-12] MEDS: diphenhydrAMINE HCl INJ 50 MG/ML VIAL IV PUSH (19:13)
[2021-11-12 19:53] LABS: Alveolar/Arterial O2 Gradient 154.2 mmHg; Base Excess ABG -4.4 mEq/l (+/-2.0); Carboxyhemoglobin 0.2 % THb (0-2.0); Device NASAL CANNULA; Fractional Inspired Oxygen 40 %; HCO3 ABG 21.1 mEq/l (22.0-26.0); Methemoglobin ABG 0.1 %THb (0-1.5); Modified Allen's Test Pass; Oxygen Content ABG 15.9 %vol (16.0-22.0); Oxygen Saturation ABG 95.8 % (95.0-100.0); Oxyhemoglobin 93.8 % THb (90.0-100.0); PCO2 ABG 40.4 mmHg (35.0-45.0); PO2 ABG 84.5 mmHg (80.0-100.0); PO2 FiO2 Ratio Arterial Blood 2.11 %; Reduced Hemoglobin 5.9 %THb (0-5.0); Site Drawn RIGHT RADIAL; pH ABG 7.336 (7.350-7.450)
[2021-11-12] MEDS: ALBUTEROL SULFATE NEB 2.5 MG/3 ML INH 10 MG INHALATION (20:01)
[2021-11-12] MEDS: IPRATROPIUM BR 0.02% INH SOLN 0.5 MG/2.5 ML VIAL 1 MG INHALATION (20:01)
[2021-11-12 20:16] LABS: Lactic Acid Reflex 2.6 mmol/L (0.7-2.0)
[2021-11-12 20:20] LABS: INR 1.4; Prothrombin Time 16.6 Seconds (11.1-14.7)
[2021-11-12 20:21] LABS: Partial Thromboplastin Time 59.9 SECONDS (22.3-36.8)
[2021-11-12 20:26] LABS: NT Pro B Type Natriuretic Pept 11100 pg/mL (5-100)
[2021-11-12 20:31] LABS: Alanine Aminotransferase 16 U/L (6-35); Albumin Level 4.1 g/dL (3.5-5.1); Alkaline Phosphatase 79 U/L (38-126); Anion Gap 9 mmol/L (8-16); Aspartate Amino Transferase 41 U/L (14-36); Bilirubin,Total 0.8 mg/dL (0.2-1.3); Blood Urea Nitrogen 43 mg/dL (7-17); Calcium 9.3 mg/dL (8.4-10.2); Carbon Dioxide 22 mmol/L (22-30); Chloride 104 mmol/L (98-107); Estimated Glomerular Filt Rate 24; Glucose 209 mg/dL (65-110); Lipase 46 U/L (23-300); Magnesium 1.3 mg/dL (1.6-2.3); Potassium 5.8 mmol/L (3.4-5.0); Sodium 135 mmol/L (137-145)
--- NOTE | 2021-11-12 21:15 | PM.IMHP ---
H&P: HPI History of Present Illness Date/Time: 11/12/21 21:15 Chief Complaint: altered mental status. Narrative: this is an 86-year-old female with past medical history significant for GERD, hypothyroidism, dyslipidemia, aortic valve stenosis, restless leg syndrome, tremor, heart block second-degree status post pacemaker placement, asthma. Patient was brought today to the emergency room for evaluation due to concerns for altered mental status according to her patient has been confused and refusing food and drinks all day and was also noted to have a fever, she has been in her usual state of health up until this moment, patient is unable to give any history due to acute altered mental status and delirium. preliminary workup was significant for creatinine of 3 BUN, 43 lactic acid 2.6, magnesium 1.3, BNP 52547, troponins 1,6 x3, chest x-ray with bilateral lung infiltrates. patient is unable to give any history due to acute altered mental status most of the history has been obtained upon reviewing medical records and the 's. Patient is being admitted for further evaluation, management and treatment. Review of Systems Review of Systems: ROS unobtainable: Yes unobtainable due to mental status ( Altered mental status) [facility] Past Medical History Medical History (Updated 11/13/21 @ 04:46 by Apolonia Hunt MD) Asthma Bipolar disorder Depression Gastroesophageal reflux disease Heart block AV second degree History of uterine cancer Hyperlipidemia Hypertensive kidney disease Hypothyroidism (acquired) Nonrheumatic aortic (valve) stenosis Osteoarthritis Overactive bladder Restless leg syndrome Tremor Secondary to medications taken for depression. Surgical History Surgical History History of bilateral hip replacements History of hysterectomy For uterine cancer. Family History Family History Father Acute myocardial infarction Mother Old age Social History Social History (Updated 10/07/21 @ 14:48 by Brenda Mcnair) Social History: The patient lives with her in [place]. She is originally from [place], [place] and she attended college in [facility]. 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 She smoked socially for about 20 years, maybe a pack a week, and quit 1969. No alcohol or illicit substance use. She designates her , Kehinde, as her surrogate decision maker and she wishes to be a full code, however would not want to be on long-term life support. Years smoked: 10 Smoking status: Former smoker Tobacco type: cigarettes Second hand tobacco smoke exposure: No Smoking end date: 06/14/72 Alcohol intake: former Substance use: never Substance use type: does not use Gender identity (if verbalized by the patient): Female Sexual Orientation (if Verbalized by the Patient): Lesbian, Flower, or Homosexual Spiritual care concerns: No Meds Home Medications and Allergies Home Medications Medication Instructions Recorded Confirmed Type ziprasidone HCl 60 mg capsule 60 mg PO BID 12/27/19 09/23/21 History acetaminophen 500 mg tablet 1,000 mg PO DAILY 12/28/19 09/23/21 History (Acetaminophen Extra Strength) albuterol sulfate 90 mcg/actuation 2 puff inhalation Q8H PRN 12/28/19 09/23/21 History aerosol inhaler (Ventolin HFA) Shortness Of Breath Or Wheezing calcium carbonate 600 mg-vitamin 2 tablet PO DAILY 12/28/19 09/23/21 History D3 20 mcg (800 unit) tablet (Caltrate with Vitamin D3) docusate sodium 50 mg capsule 50 mg PO EVERY OTHER DAY 12/28/19 09/23/21 History duloxetine 60 mg capsule,delayed 60 mg PO DAILY 12/28/19 09/23/21 History release multivit with 1 tablet PO DAILY 12/28/19 09/23/21 History [id number]
[2021-11-12 21:23] LABS: SARS-CoV-2 RNA PCR Negative
[2021-11-12 21:28] LABS: Appearance Urine Slightly Cloudy (Clear); Bilirubin Urine 1+ (Negative); Blood Urine 2+ (Negative); Color Urine Yellow (Yellow); Glucose Urine UA Negative (Negative); Ketones Urine Negative (Negative); Leukocyte Esterase Ur Negative LEU/UL (Negative); Nitrate Urine Negative (Negative); Protein Urine Trace mg/dL (Negative); Urobilinogen Urine 0.2 mg/dL (<2.0); pH Urine 5.5 (5.0-9.0)
[2021-11-12] MEDS: FUROSEMIDE INJ 40 MG/4 ML VIAL 20 MG IV PUSH (21:38)
[2021-11-12 21:39] LABS: Calcium Oxalate Crystals Urine Present /hpf; Mucus Urine Rare /lpf; RBC Urine >75 /hpf (0-2); Squamous Epithelial Cell Urine Rare /hpf (Few)
[2021-11-12 21:40] LABS: Add Urine Microscopic? YES
[2021-11-12 21:50] LABS: Amphetamine Screen Urine Negative (Negative); Barbiturate Screen Urine Negative (Negative); Benzodiazepines Screen Urine Negative (Negative); Cannabinoid Screen Urine Negative (Negative); Cocaine Screen Urine Negative (Negative); Methadone Screen Urine Negative (Negative); Opiate Screen Urine Negative (Negative); Phencyclidine Screen Urine Negative (Negative)
[2021-11-12 23:01] LABS: Reflex Lactic Acid Yes or No Add Lactic
[2021-11-13] VITALS (21 sets, daily range): BP systolic 133–154; BP diastolic 49–88; PULSE 60–77; RESP 20–44; TEMP 37.1–39.6; O2SAT 91–99; BMI 39.4
[2021-11-13 00:09] LABS: Lactic Acid 1.6 mmol/L (0.7-2.0)
--- NOTE | 2021-11-13 00:30 | ADMGEN ---
This patient, Sana Ramos, was admitted to IMU Room 205-02. Patient/family oriented to hospital policies and general routines including ID bracelet, bed and alarms, visiting hours, pain management, procedures, bathroom and other care routines, personal items, smoking policy, room service/diet, and visiting hours. Information on how to activate the Rapid Response Team has been discussed. Patient/Family are encouraged to report perceived risks to care and to ask questions if they do not understand what they are told or what they should do.
[2021-11-13] MEDS: HALOPERIDOL LACTATE 5 MG/ML VIAL IM (02:19)
[2021-11-13 04:55] LABS: Estimated Glomerular Filt Rate 22
[2021-11-13] MEDS: AZTREONAM 1 GM in DEXTROSE 5% IN WATER 50 ML 100 ML IVPB ×3 (05:15→20:41)
--- NOTE | 2021-11-13 08:18 | PM.IMPN ---
Progress Note: A&P Assessment and Plan (1) Sepsis: Code(s): A41.9 - Sepsis, unspecified organism Status: Acute Assessment and Plan: as evidenced by elevated creatinine MEL on CKD stage 3 baseline creatinine around 1.6 currently we 2.1 altered mental status Will give gentle IV fluids for underlying sepsis and lactic acidosis broad-spectrum antibiotics started with vancomycin and aztreonam. cultures in progress covid negative (2) Nonrheumatic aortic (valve) stenosis: Code(s): I35.0 - Nonrheumatic aortic (valve) stenosis Status: Acute Assessment and Plan: unchanged (3) Dysphagia: Qualifiers: Dysphagia type: oropharyngeal phase Qualified Code(s): R13.12 - Dysphagia, oropharyngeal phase Code(s): R13.10 - Dysphagia, unspecified Status: Acute Assessment and Plan: unchanged (4) Status cardiac pacemaker: Code(s): Z95.0 - Presence of cardiac pacemaker Status: Acute Assessment and Plan: continue to monitor (5) Heart block AV second degree: Code(s): I44.1 - Atrioventricular block, second degree Status: Acute Assessment and Plan: status post pacemaker placement (6) Altered mental status: Code(s): R41.82 - Altered mental status, unspecified Status: Acute Assessment and Plan: likely secondary to sepsis supportive care (7) Elevated troponin I level: Code(s): R77.8 - Other specified abnormalities of plasma proteins Status: Acute Assessment and Plan: likely to be nonischemic myocardial injury. continue to monitor cardiology consultation (8) Acute kidney injury superimposed on CKD: Code(s): N17.9 - Acute kidney failure, unspecified; N18.9 - Chronic kidney disease, unspecified Status: Acute Assessment and Plan: likely to be pre renal azotemia Baseline creatinine 1.6 CKD stage 3 currently 2.1 MEL and CKD stage 3 likely prerenal for underlying sepsis (9) Congestive heart failure: Code(s): I50.9 - Heart failure, unspecified Status: Acute Assessment and Plan: Chest x-ray with the bilateral opacities pneumonia versus pulmonary edema BNP is elevated Lactic acidosis present on admission Will give gentle fluids Echocardiogram today (10) Gastroesophageal reflux disease: Code(s): K21.9 - Gastro-esophageal reflux disease without esophagitis Status: Acute Assessment and Plan: PPI as needed Additional Plan DVT prophylaxis on heparin subQ. Noted to be on Eliquis at home. Patient altered he had to be kept NPO Code status do not resuscitate Subjective Date/time seen: 11/13/21 08:19 Interval history: HPI: ?this is an 86-year-old female with past medical history significant for GERD, hypothyroidism, dyslipidemia, aortic valve stenosis, restless leg syndrome, tremor, heart block second-degree status post pacemaker placement, asthma.? Patient was brought today to the emergency room for evaluation due to concerns for altered mental status according to her patient has been confused and refusing food and drinks all day and was also noted to have a fever, she has been in her usual state of health up until this moment, patient is unable to give any history due to acute altered mental status and delirium. preliminary workup was significant for creatinine of 3 BUN, 43 lactic acid 2.6, magnesium 1.3, BNP 77137, troponins 1,6 x3,? chest x-ray with bilateral lung infiltrates. patient is unable to give any history due to acute altered mental status most of the history has been obtained upon reviewing medical records and the 's.? Patient is being admitted for further evaluation, management and treatment. 11/13/2021: Overnight was agitated and needed Haldol. Remains febrile. Awake but does not respond to commands. Resists examination. Noted to be tachypneic. Review of Systems Review of Systems: ROS unobtainable: Yes unob
[2021-11-13 08:42] LABS: Alveolar/Arterial O2 Gradient 117.6 mmHg; Base Excess ABG -0.7 mEq/l (+/-2.0); Fractional Inspired Oxygen 36 %; HCO3 ABG 24.9 mEq/l (22.0-26.0); Oxygen Content ABG 16.3 %vol (16.0-22.0); Oxygen Saturation ABG 96.2 % (95.0-100.0); Oxyhemoglobin 94.7 % THb (90.0-100.0); PCO2 ABG 45.1 mmHg (35.0-45.0); PO2 ABG 86.8 mmHg (80.0-100.0); PO2 FiO2 Ratio Arterial Blood 2.41 %; Total Hemoglobin 12.2 g/dL (12.0-18.0)
[2021-11-13 08:45] LABS: Device NASAL CANNULA; Modified Allen's Test Pass; Site Drawn LEFT RADIAL
[2021-11-13] MEDS: HEPARIN SODIUM 5,000 UNITS/ML VIAL 5000 UNITS SUB-Q ×2 (09:22→20:46)
[2021-11-13] MEDS: SODIUM CHLORIDE 0.9% IV 1,000 ML 50 ML IV CONT (09:24)
[2021-11-13 09:35] LABS: Ammonia < 9 umol/L (9-30)
[2021-11-13 09:36] LABS: Lactic Acid Reflex 1.2 mmol/L (0.7-2.0)
[2021-11-13 09:39] LABS: Alanine Aminotransferase 20 U/L (6-35); Alkaline Phosphatase 75 U/L (38-126); Anion Gap 10 mmol/L (8-16); Aspartate Amino Transferase 63 U/L (14-36); Bilirubin,Total 0.9 mg/dL (0.2-1.3); Blood Urea Nitrogen 45 mg/dL (7-17); Calcium 9.4 mg/dL (8.4-10.2); Carbon Dioxide 24 mmol/L (22-30); Chloride 104 mmol/L (98-107); Estimated Glomerular Filt Rate 20; Glucose 139 mg/dL (65-110); Magnesium 1.4 mg/dL (1.6-2.3); Potassium 4.9 mmol/L (3.4-5.0); Sodium 138 mmol/L (137-145)
[2021-11-13 11:01] LABS: Creatinine Urine 129.2 mg/dL; Urea Random Urine 720 MG/DL
[2021-11-13 11:04] LABS: Sodium Urine Random 30 meq/L
[2021-11-13 11:27] LABS: Eosinophil Urine None Seen % (None Seen)
[2021-11-13] MEDS: MAGNESIUM SULF 2 GM/WATER 50ML 2 GM/50 ML BAG IVPB (12:15)
--- NOTE | 2021-11-13 14:23 | PM.CNCAR ---
Assessment and Plan Assessment and plan (1) Elevated troponin I level: Code(s): R77.8 - Other specified abnormalities of plasma proteins <Nida Gurvinder CALE Parks - Last Filed: 11/13/21 16:31> Status: Acute <Nida ParksCALE - Last Filed: 11/13/21 16:31> Assessment and Plan: Troponin levels were elevated but essentially flat. Does have chronic troponin elevation. Unable to fully assess for any ischemic changes on ECG because she is ventricularly paced. Unable to obtain any history of chest pain. Cannot exclude ACS but more likely type 2 PR in the setting of sepsis. No further work up is indicated at this time. <CALE Burr - Last Filed: 11/13/21 16:31> (2) Congestive heart failure: Code(s): I50.9 - Heart failure, unspecified <CALE Burr - Last Filed: 11/13/21 16:31> Status: Acute <Nida Gurvinder CALE Parks - Last Filed: 11/13/21 16:31> Assessment and Plan: Overall does not appear to be in decompensated heart failure despite elevated BNP. Does also have pulmonary edema on chest Xray. Is on 5L O2 currently. She was given one dose of IV lasix in the ED but has subsequently been given fluids for lactic acidosis. Will not give any additional diuretics for now and monitor her volume status and respiratory status. Echo in 2020 showed normal LV systolic function but she does have diastolic dysfunction. Will check another echo to assess LV size and function, WMA. <CALE Burr - Last Filed: 11/13/21 16:31> (3) Altered mental status: Code(s): R41.82 - Altered mental status, unspecified <CALE Burr - Last Filed: 11/13/21 16:31> Status: Acute <CALE Burr - Last Filed: 11/13/21 16:31> Assessment and Plan: Secondary to UTI, sepsis <CALE Burr - Last Filed: 11/13/21 16:31> (4) Acute kidney injury superimposed on CKD: Code(s): N17.9 - Acute kidney failure, unspecified; N18.9 - Chronic kidney disease, unspecified <CALE Burr - Last Filed: 11/13/21 16:31> Status: Acute <CALE Burr - Last Filed: 11/13/21 16:31> Assessment and Plan: Secondary to sepsis <CALE Burr - Last Filed: 11/13/21 16:31> (5) Heart block AV second degree: Code(s): I44.1 - Atrioventricular block, second degree <CALE Burr - Last Filed: 11/13/21 16:31> Status: Acute <CALE Burr - Last Filed: 11/13/21 16:31> Assessment and Plan: s/p [facility]rij[facility] PPM, appears to be functioning appropriately. <CALE Burr - Last Filed: 11/13/21 16:31> Additional Plan Attending Addendum: I have personally seen and examined this patient at bedside. I agree with the above documentation and plan of care as outlined. -Patient is an 86-year-old female followed by Dr. Branham as an outpatient with [employer] dual chamber pacemaker secondary to symptomatic second-degree AV block, aortic stenosis and insufficiency, mild mitral stenosis, hypertension, hypothyroidism presented to the emergency department with altered mental status with worsening confusion, refusal to eat and drink and reported fever. It is reported the patient had otherwise been well up until this point. She is unable to provide any history due to her mental status. She otherwise denies chest pain, shortness of breath at this time. She is alert to her name only. Patient's not available at this time and remainder of her history obtained through electronic medical record. She was reportedly being treated with Keflex for urinary tract infection as an outpatient. Patient was found to be in acute on chronic renal failure with elevated lactic acid and a BNP greater than 11,000. She had bilateral infiltrates on chest x-ray. Troponins were obtained for unclear reasons over noted be elevated but flat at 1.6 serially. Patient remains in soft restraints due to agitati
[2021-11-13] MEDS: ALBUTEROL SULFATE (*SP) AEROSOL 1 PUFF 2 PUFF INHALATION ×2 (14:50→20:32)
[2021-11-13] MEDS: IPRATROPIUM BR 0.02% INH SOLN 0.5 MG/2.5 ML VIAL INHALATION ×2 (15:23→20:32)
[2021-11-13 19:20] LABS: Anion Gap 9 mmol/L (8-16); Blood Urea Nitrogen 45 mg/dL (7-17); Calcium 9.6 mg/dL (8.4-10.2); Carbon Dioxide 25 mmol/L (22-30); Chloride 104 mmol/L (98-107); Estimated Glomerular Filt Rate 22; Glucose 124 mg/dL (65-110); Potassium 4.7 mmol/L (3.4-5.0); Sodium 138 mmol/L (137-145)
[2021-11-14] VITALS (19 sets, daily range): BP systolic 124–176; BP diastolic 41–90; PULSE 62–87; RESP 18–36; TEMP 36.6–37.3; O2SAT 93–100; BMI 34.5
[2021-11-14] MEDS: IPRATROPIUM BR 0.02% INH SOLN 0.5 MG/2.5 ML VIAL INHALATION ×4 (02:20→20:48)
[2021-11-14] MEDS: ALBUTEROL SULFATE (*SP) AEROSOL 1 PUFF 2 PUFF INHALATION ×4 (02:21→20:48)
[2021-11-14 05:08] LABS: Basophils Absolute Auto 0.1 K/mm3 (0.0-0.1); Basophils Percent Auto 0.4 % (0.2-1.2); Eosinophils Percent Auto 0.1 % (0-4.4); Hemoglobin 10.7 g/dL (12.0-15.0); Immature Granulocyte Absolute 0.05 K/mm3 (0.00-0.031); Immature Granulocyte Percent A 0.4 % (0-0.5); Lymphocytes Absolute Auto 0.82 K/mm3 (0.9-3.2); Lymphocytes Percent Auto 6.9 % (18.3-44.2); Mean Corpuscular HGB Conc 32.4 g/dl (32-36); Mean Corpuscular Hemoglobin 29.5 pg (26-34); Mean Corpuscular Volume 90.9 fl (80-100); Monocytes Absolute Auto 1.2 K/mm3 (0.1-0.6); Monocytes Percent Auto 10.5 % (2.6-8.5); Neutrophils Absolute Auto 9.6 K/mm3 (1.3-6.7); Neutrophils Percent Auto 81.7 % (45.5-73.1); Platelet Count Result 206 k/mm3 (150-375); Red Blood Count 3.63 M/mm3 (4.2-5.4); Red Cell Distribution Width 13.2 % (11.5-14.5); White Blood Count 11.8 K/mm3 (4.5-10.0)
[2021-11-14 05:23] LABS: Alanine Aminotransferase 34 U/L (6-35); Albumin Level 3.5 g/dL (3.5-5.1); Alkaline Phosphatase 65 U/L (38-126); Anion Gap 5 mmol/L (8-16); Aspartate Amino Transferase 101 U/L (14-36); Blood Urea Nitrogen 44 mg/dL (7-17); Calcium 9.4 mg/dL (8.4-10.2); Carbon Dioxide 27 mmol/L (22-30); Chloride 107 mmol/L (98-107); Estimated Glomerular Filt Rate 25; Glucose 111 mg/dL (65-110); Magnesium 2.1 mg/dL (1.6-2.3); Potassium 5.1 mmol/L (3.4-5.0); Sodium 139 mmol/L (137-145)
[2021-11-14] MEDS: AZTREONAM 1 GM in DEXTROSE 5% IN WATER 50 ML 100 ML IVPB ×3 (05:45→19:52)
[2021-11-14] MEDS: HEPARIN SODIUM 5,000 UNITS/ML VIAL 5000 UNITS SUB-Q (08:52)
[2021-11-14] MEDS: SODIUM CHLORIDE 0.9% IV 1,000 ML 50 ML IV CONT (08:52)
--- NOTE | 2021-11-14 12:56 | PM.IMPN ---
Progress Note: A&P Assessment and Plan (1) Sepsis: Code(s): A41.9 - Sepsis, unspecified organism Status: Acute Assessment and Plan: as evidenced by elevated creatinine MEL on CKD stage 3 baseline creatinine around 1.6 currently we 2.1 altered mental status Will give gentle IV fluids for underlying sepsis and lactic acidosis. Lactic acidosis is resolved. broad-spectrum antibiotics started with vancomycin and aztreonam. cultures in progress , continue to follow cultures covid negative (2) Nonrheumatic aortic (valve) stenosis: Code(s): I35.0 - Nonrheumatic aortic (valve) stenosis Status: Acute Assessment and Plan: unchanged (3) Dysphagia: Qualifiers: Dysphagia type: oropharyngeal phase Qualified Code(s): R13.12 - Dysphagia, oropharyngeal phase Code(s): R13.10 - Dysphagia, unspecified Status: Acute Assessment and Plan: unchanged (4) Status cardiac pacemaker: Code(s): Z95.0 - Presence of cardiac pacemaker Status: Acute Assessment and Plan: continue to monitor (5) Heart block AV second degree: Code(s): I44.1 - Atrioventricular block, second degree Status: Acute Assessment and Plan: status post pacemaker placement (6) Altered mental status: Code(s): R41.82 - Altered mental status, unspecified Status: Acute Assessment and Plan: likely secondary to sepsis supportive care (7) Elevated troponin I level: Code(s): R77.8 - Other specified abnormalities of plasma proteins Status: Acute Assessment and Plan: likely to be nonischemic myocardial injury. continue to monitor cardiology consultation (8) Acute kidney injury superimposed on CKD: Code(s): N17.9 - Acute kidney failure, unspecified; N18.9 - Chronic kidney disease, unspecified Status: Acute Assessment and Plan: likely to be pre renal azotemia Baseline creatinine 1.6 CKD stage 3 currently 2.1 MEL and CKD stage 3 likely prerenal for underlying sepsis (9) Congestive heart failure: Code(s): I50.9 - Heart failure, unspecified Status: Acute Assessment and Plan: Chest x-ray with the bilateral opacities pneumonia versus pulmonary edema BNP is elevated Lactic acidosis present on admission Will give gentle fluids. Stop once able to eat. Will have swallow evaluation for this Echocardiogram Pending (10) Gastroesophageal reflux disease: Code(s): K21.9 - Gastro-esophageal reflux disease without esophagitis Status: Acute Assessment and Plan: PPI as needed Additional Plan DVT prophylaxis on heparin subQ. Noted to be on Eliquis at home. Patient altered he had to be kept NPO. Swallow evaluation to start diet Code status do not resuscitate Subjective Date/time seen: 11/14/21 12:56 Interval history: HPI: ?this is an 86-year-old female with past medical history significant for GERD, hypothyroidism, dyslipidemia, aortic valve stenosis, restless leg syndrome, tremor, heart block second-degree status post pacemaker placement, asthma.? Patient was brought today to the emergency room for evaluation due to concerns for altered mental status according to her patient has been confused and refusing food and drinks all day and was also noted to have a fever, she has been in her usual state of health up until this moment, patient is unable to give any history due to acute altered mental status and delirium. preliminary workup was significant for creatinine of 3 BUN, 43 lactic acid 2.6, magnesium 1.3, BNP 59493, troponins 1,6 x3,? chest x-ray with bilateral lung infiltrates. patient is unable to give any history due to acute altered mental status most of the history has been obtained upon reviewing medical records and the 's.? Patient is being admitted for further evaluation, management and treatment. 11/13/2021: Overnight was agitated and needed Haldol. Remains febrile.
--- NOTE | 2021-11-14 14:15 | PCSTNOTE ---
Please refer to the Bedside Swallow Evaluation in the EMR. Please note, silent aspiration cannot be ruled out at bedside.
--- NOTE | 2021-11-14 16:52 | ECHO_ITS ---
Patient Info Name: Sana Ramos Age: 86 years : 1935 Gender: Female Ht: 57 in Wt: 169 lbs BSA: 1.80 m2 HR: 72 bpm BP: 124 / 41 mmHg Heart Rhythm: Paced Technical Quality: Good Exam Date: 11/14/2021 2:28 PM Exam Location: [facility] Pulmonary Exam Room: [facility] Patient Status: Inpatient Admit Date: 11/13/2021 Staff Ordering Physician: Tacho Alvarado MD Helicopter Specialist: Anabell Ramires RDCS Attending Provider: Rosalio Ledesma MD Referring Physician: Jenny WOOD; Exam Type: CA echo doppler color flow Study Info Indications - ELEVATED TROPONINS PPM Complete two-dimensional, color flow and Doppler transthoracic echocardiogram is performed. Summary 1. Complete two-dimensional, color flow and Doppler transthoracic echocardiogram is performed. 2. Left ventricular chamber dimension is normal. 3. Left ventricular systolic function is normal, estimated at 65-70%. 4. There is moderately increased left ventricular wall thickness. 5. Left ventricular septal wall motion is abnormal with septal motion related to pacing. 6. The left ventricular diastolic function is grade II diastolic dysfunction. 7. Left atrial chamber dimension is severely enlarged. 8. There is moderate aortic valve stenosis with a peak velocity of 430 cm/s, mean gradient of 35 mmHg, and aortic valve area of 1.2 cm2. 9. There is moderate mitral valve regurgitation. 10. There is mild mitral valve stenosis. 11. There is mild to moderate tricuspid valve regurgitation. 12. Severe pulmonary hypertension, estimated pulmonary arterial systolic pressure is 75 mmHg. Left Ventricle Left ventricular chamber dimension is normal. Left ventricular systolic function is normal, estimated at 65-70%. There is moderately increased left ventricular wall thickness. Left ventricular septal wall motion is abnormal with septal motion related to pacing. The left ventricular diastolic function is grade II diastolic dysfunction. Right Ventricle Right ventricular chamber dimension is normal. Right ventricular systolic function is normal. Linear artifact in right ventricle suggestive of catheter(s), pacemaker lead(s), or ICD lead(s). Left Atria Left atrial chamber dimension is severely enlarged. Right Atria Right atrial chamber dimension is mildly enlarged. Linear artifact in the right atrium suggestive of catheter(s), pacemaker lead(s), or ICD lead(s). Aortic Valve The aortic valve is not well visualized. There is moderate aortic valve stenosis with a peak velocity of 430 cm/s, mean gradient of 35 mmHg, and aortic valve area of 1.2 cm2. There is mild aortic valve regurgitation. There is severe aortic valve calcification. Pulmonic Valve The pulmonic valve is not well visualized. Mitral Valve The mitral valve has thickened leaflets. There is mild mitral valve stenosis. There is moderate mitral valve regurgitation. There is mild mitral valve calcification. The mitral valve annulus is severely calcified. Tricuspid Valve The tricuspid valve leaflets are normal. There is mild to moderate tricuspid valve regurgitation. Severe pulmonary hypertension, estimated pulmonary arterial systolic pressure is 75 mmHg. Pericardium/Pleural The pericardium appears normal. There is no pericardial effusion. Inferior Vena Cava Normal inferior vena cava with <50% collapse upon inspiration consistent with normal right atrial pressure, 5 mmHg. Aorta The aortic root size at the sinus of Valsalva is
--- NOTE | 2021-11-14 19:02 | PC.NURSE ---
This patient, Sana Ramos, was transferred to [facility] on 11/14/21 at 1902. Personal belongings sent with patient. Report given to VIKRAM Cat. Appropriate documentation sent with patient.
[2021-11-15] VITALS (18 sets, daily range): BP systolic 124–167; BP diastolic 39–57; PULSE 70–92; RESP 16–22; TEMP 36.3–36.7; O2SAT 88–97
[2021-11-15] MEDS: IPRATROPIUM BR 0.02% INH SOLN 0.5 MG/2.5 ML VIAL INHALATION ×4 (02:15→20:19)
[2021-11-15] MEDS: ALBUTEROL SULFATE (*SP) AEROSOL 1 PUFF 2 PUFF INHALATION ×4 (02:15→20:19)
[2021-11-15] MEDS: AZTREONAM 1 GM in DEXTROSE 5% IN WATER 50 ML 100 ML IVPB ×3 (03:00→20:38)
[2021-11-15] MEDS: SODIUM CHLORIDE 0.9% IV 1,000 ML 50 ML IV CONT (03:00)
[2021-11-15 05:23] LABS: Basophils Percent Auto 0.4 % (0.2-1.2); Eosinophils Absolute Auto 0.1 K/mm3 (0-0.3); Eosinophils Percent Auto 0.6 % (0-4.4); Hematocrit 30.8 % (37.0-47.0); Hemoglobin 9.8 g/dL (12.0-15.0); Immature Granulocyte Absolute 0.07 K/mm3 (0.00-0.031); Immature Granulocyte Percent A 0.7 % (0-0.5); Lymphocytes Absolute Auto 0.65 K/mm3 (0.9-3.2); Lymphocytes Percent Auto 6.3 % (18.3-44.2); Mean Corpuscular HGB Conc 31.8 g/dl (32-36); Mean Corpuscular Hemoglobin 28.9 pg (26-34); Mean Corpuscular Volume 90.9 fl (80-100); Mean Platelet Volume 10.2 fl (7.4-10.4); Monocytes Percent Auto 10.1 % (2.6-8.5); Neutrophils Absolute Auto 8.4 K/mm3 (1.3-6.7); Neutrophils Percent Auto 81.9 % (45.5-73.1); Platelet Count Result 203 k/mm3 (150-375); Red Blood Count 3.39 M/mm3 (4.2-5.4); Red Cell Distribution Width 13.4 % (11.5-14.5); White Blood Count 10.3 K/mm3 (4.5-10.0)
[2021-11-15 05:40] LABS: Alanine Aminotransferase 35 U/L (6-35); Albumin Level 3.3 g/dL (3.5-5.1); Alkaline Phosphatase 60 U/L (38-126); Anion Gap 4 mmol/L (8-16); Aspartate Amino Transferase 64 U/L (14-36); Bilirubin,Total 0.9 mg/dL (0.2-1.3); Blood Urea Nitrogen 37 mg/dL (7-17); Calcium 9.1 mg/dL (8.4-10.2); Carbon Dioxide 25 mmol/L (22-30); Chloride 108 mmol/L (98-107); Estimated Glomerular Filt Rate 36; Glucose 108 mg/dL (65-110); Potassium 4.4 mmol/L (3.4-5.0); Sodium 137 mmol/L (137-145)
--- NOTE | 2021-11-15 10:59 | PCSTNOTE ---
Please refer to the Modified Barium Swallow Evaluation in the EMR.
--- NOTE | 2021-11-15 11:32 | PM.IMPN ---
Progress Note: A&P Assessment and Plan (1) Sepsis: Code(s): A41.9 - Sepsis, unspecified organism Status: Acute Assessment and Plan: as evidenced by elevated creatinine MEL on CKD stage 3 baseline creatinine around 1.6 currently we 2.1 altered mental status Will give gentle IV fluids for underlying sepsis and lactic acidosis. Lactic acidosis is resolved. broad-spectrum antibiotics started with vancomycin and aztreonam. cultures in progress , continue to follow cultures covid negative Will discontinue vancomycin today (2) Nonrheumatic aortic (valve) stenosis: Code(s): I35.0 - Nonrheumatic aortic (valve) stenosis Status: Acute Assessment and Plan: unchanged (3) Dysphagia: Qualifiers: Dysphagia type: oropharyngeal phase Qualified Code(s): R13.12 - Dysphagia, oropharyngeal phase Code(s): R13.10 - Dysphagia, unspecified Status: Acute Assessment and Plan: Swallow evaluation performed at bedside failed MBS performed today Still recommended NPO due to ongoing aspiration Will discuss further with the family regarding further course Will get in touch with speech therapy regarding her dysphagia prognosis (4) Status cardiac pacemaker: Code(s): Z95.0 - Presence of cardiac pacemaker Status: Acute Assessment and Plan: continue to monitor (5) Heart block AV second degree: Code(s): I44.1 - Atrioventricular block, second degree Status: Acute Assessment and Plan: status post pacemaker placement (6) Altered mental status: Code(s): R41.82 - Altered mental status, unspecified Status: Acute Assessment and Plan: likely secondary to sepsis supportive care (7) Elevated troponin I level: Code(s): R77.8 - Other specified abnormalities of plasma proteins Status: Acute Assessment and Plan: likely to be nonischemic myocardial injury. continue to monitor cardiology consultation (8) Acute kidney injury superimposed on CKD: Code(s): N17.9 - Acute kidney failure, unspecified; N18.9 - Chronic kidney disease, unspecified Status: Acute Assessment and Plan: likely to be pre renal azotemia Baseline creatinine 1.6 CKD stage 3 currently 2.1 MEL and CKD stage 3 likely prerenal for underlying sepsis (9) Congestive heart failure: Code(s): I50.9 - Heart failure, unspecified Status: Acute Assessment and Plan: Chest x-ray with the bilateral opacities pneumonia versus pulmonary edema BNP is elevated Lactic acidosis present on admission Will give gentle fluids. Stop once able to eat. Will have swallow evaluation for this Echocardiogram Pending (10) Gastroesophageal reflux disease: Code(s): K21.9 - Gastro-esophageal reflux disease without esophagitis Status: Acute Assessment and Plan: PPI as needed Additional Plan DVT prophylaxis on heparin subQ. Noted to be on Eliquis at home. Patient altered he had to be kept NPO. Swallow evaluation to start diet Code status do not resuscitate Subjective Date/time seen: 11/15/21 11:32 Interval history: HPI: ?this is an 86-year-old female with past medical history significant for GERD, hypothyroidism, dyslipidemia, aortic valve stenosis, restless leg syndrome, tremor, heart block second-degree status post pacemaker placement, asthma.? Patient was brought today to the emergency room for evaluation due to concerns for altered mental status according to her patient has been confused and refusing food and drinks all day and was also noted to have a fever, she has been in her usual state of health up until this moment, patient is unable to give any history due to acute altered mental status and delirium. preliminary workup was significant for creatinine of 3 BUN, 43 lactic acid 2.6, magnesium 1.3, BNP 45490, troponins 1,6 x3,? chest x-ray with bilateral lung infiltrates. patient is unable to give any hi
--- NOTE | 2021-11-15 16:38 | ECG_ITS ---
Measurements Intervals [place] Rate: 79 P: -80 AR: 132 QRS: -8 QRSD: 176 T: 122 QT: 457 QTc: 527 Interpretive Statements ELECTRONIC VENTRICULAR PACEMAKER PROBABLE UNDERLYING SINUS RHYTHM NO SIGNIFICANT CHANGE COMPARED TO PRIOR TRACING Electronically Signed On 11-16-2021 8:52:01 CDT by Felicity Branham M.D.
[2021-11-16] VITALS (15 sets, daily range): BP systolic 137–159; BP diastolic 45–68; PULSE 71–97; RESP 14–18; TEMP 36.6–37.2; O2SAT 92–98
[2021-11-16] MEDS: IPRATROPIUM BR 0.02% INH SOLN 0.5 MG/2.5 ML VIAL INHALATION ×4 (02:01→19:17)
[2021-11-16] MEDS: ALBUTEROL SULFATE (*SP) AEROSOL 1 PUFF 2 PUFF INHALATION ×4 (02:01→19:17)
[2021-11-16] MEDS: SODIUM CHLORIDE 0.9% IV 1,000 ML 50 ML IV CONT (04:32)
[2021-11-16] MEDS: AZTREONAM 1 GM in DEXTROSE 5% IN WATER 50 ML 100 ML IVPB ×3 (04:32→19:58)
[2021-11-16 06:14] LABS: Basophils Percent Auto 0.4 % (0.2-1.2); Eosinophils Absolute Auto 0.2 K/mm3 (0-0.3); Eosinophils Percent Auto 3.2 % (0-4.4); Hematocrit 30.6 % (37.0-47.0); Hemoglobin 9.8 g/dL (12.0-15.0); Immature Granulocyte Absolute 0.03 K/mm3 (0.00-0.031); Immature Granulocyte Percent A 0.4 % (0-0.5); Lymphocytes Absolute Auto 0.53 K/mm3 (0.9-3.2); Lymphocytes Percent Auto 7.5 % (18.3-44.2); Mean Corpuscular Hemoglobin 29.5 pg (26-34); Mean Corpuscular Volume 92.2 fl (80-100); Mean Platelet Volume 9.9 fl (7.4-10.4); Monocytes Absolute Auto 0.8 K/mm3 (0.1-0.6); Monocytes Percent Auto 10.5 % (2.6-8.5); Neutrophils Absolute Auto 5.5 K/mm3 (1.3-6.7); Platelet Count Result 201 k/mm3 (150-375); Red Blood Count 3.32 M/mm3 (4.2-5.4); Red Cell Distribution Width 13.6 % (11.5-14.5); White Blood Count 7.1 K/mm3 (4.5-10.0)
[2021-11-16 06:28] LABS: Alanine Aminotransferase 31 U/L (6-35); Albumin Level 3.2 g/dL (3.5-5.1); Alkaline Phosphatase 62 U/L (38-126); Anion Gap 6 mmol/L (8-16); Aspartate Amino Transferase 41 U/L (14-36); Bilirubin,Total 0.9 mg/dL (0.2-1.3); Blood Urea Nitrogen 32 mg/dL (7-17); Calcium 9.1 mg/dL (8.4-10.2); Carbon Dioxide 23 mmol/L (22-30); Chloride 110 mmol/L (98-107); Estimated Glomerular Filt Rate 43; Glucose 92 mg/dL (65-110); Magnesium 1.9 mg/dL (1.6-2.3); Potassium 4.4 mmol/L (3.4-5.0); Sodium 139 mmol/L (137-145)
--- NOTE | 2021-11-16 14:49 | PM.IMPN ---
Progress Note: A&P Assessment and Plan (1) Sepsis: Code(s): A41.9 - Sepsis, unspecified organism Status: Acute Assessment and Plan: as evidenced by elevated creatinine MEL on CKD stage 3 baseline creatinine around 1.6 currently we 2.1 altered mental status Will give gentle IV fluids for underlying sepsis and lactic acidosis. Lactic acidosis is resolved. broad-spectrum antibiotics started with vancomycin and aztreonam. cultures in progress , continue to follow cultures covid negative now discontinued vancomycin (2) Nonrheumatic aortic (valve) stenosis: Code(s): I35.0 - Nonrheumatic aortic (valve) stenosis Status: Acute Assessment and Plan: unchanged (3) Dysphagia: Qualifiers: Dysphagia type: oropharyngeal phase Qualified Code(s): R13.12 - Dysphagia, oropharyngeal phase Code(s): R13.10 - Dysphagia, unspecified Status: Acute Assessment and Plan: Swallow evaluation performed at bedside failed MBS performed today Still recommended NPO due to ongoing aspiration discussed with family regarding her ongoing dysphagia. Discussed placement of tube feeds for feeding and working with speech therapy to see if dysphagia with with short interval. If not need to go for PEG tube placement. Family agreeable for her Dobbhoff placement for do feet No prior history of recurrent pneumonias or known history of aspiration (4) Status cardiac pacemaker: Code(s): Z95.0 - Presence of cardiac pacemaker Status: Acute Assessment and Plan: continue to monitor (5) Heart block AV second degree: Code(s): I44.1 - Atrioventricular block, second degree Status: Acute Assessment and Plan: status post pacemaker placement (6) Altered mental status: Code(s): R41.82 - Altered mental status, unspecified Status: Acute Assessment and Plan: likely secondary to sepsis supportive care (7) Elevated troponin I level: Code(s): R77.8 - Other specified abnormalities of plasma proteins Status: Acute Assessment and Plan: likely to be nonischemic myocardial injury. continue to monitor cardiology consultation (8) Acute kidney injury superimposed on CKD: Code(s): N17.9 - Acute kidney failure, unspecified; N18.9 - Chronic kidney disease, unspecified Status: Acute Assessment and Plan: likely to be pre renal azotemia Baseline creatinine 1.6 CKD stage 3 currently 2.1 MEL and CKD stage 3 likely prerenal for underlying sepsis (9) Congestive heart failure: Code(s): I50.9 - Heart failure, unspecified Status: Acute Assessment and Plan: Chest x-ray with the bilateral opacities pneumonia versus pulmonary edema BNP is elevated Lactic acidosis present on admission Will give gentle fluids. Stop once able to eat. Will have swallow evaluation for this Echocardiogram Pending (10) Gastroesophageal reflux disease: Code(s): K21.9 - Gastro-esophageal reflux disease without esophagitis Status: Acute Assessment and Plan: PPI as needed Additional Plan DVT prophylaxis on heparin subQ. Noted to be on Eliquis at home. Patient altered he had to be kept NPO. Swallow evaluation to start diet Code status do not resuscitate Subjective Date/time seen: 11/16/21 14:49 Interval history: HPI: ?this is an 86-year-old female with past medical history significant for GERD, hypothyroidism, dyslipidemia, aortic valve stenosis, restless leg syndrome, tremor, heart block second-degree status post pacemaker placement, asthma.? Patient was brought today to the emergency room for evaluation due to concerns for altered mental status according to her patient has been confused and refusing food and drinks all day and was also noted to have a fever, she has been in her usual state of health up until this moment, patient is unable to give any history due to acute altered mental status and
--- NOTE | 2021-11-16 17:46 | PC.NURSE ---
Tube feeding started via dobhoff at 1730 Jevity 1.2 at 10ml/ with 30ml water flush every 4 hours. Patient tolerating well.
[2021-11-17] VITALS (14 sets, daily range): BP systolic 150–160; BP diastolic 52–79; PULSE 70–102; RESP 16–18; TEMP 36.4–37.1; O2SAT 92–100
[2021-11-17] MEDS: ALBUTEROL SULFATE NEB 2.5 MG/3 ML INH INHALATION ×4 (02:07→21:16)
[2021-11-17] MEDS: IPRATROPIUM BR 0.02% INH SOLN 0.5 MG/2.5 ML VIAL INHALATION ×4 (02:08→21:16)
[2021-11-17 02:52] LABS: Osmolality, Urine 549 mOsm/kg (50-1200)
[2021-11-17] MEDS: AZTREONAM 1 GM in DEXTROSE 5% IN WATER 50 ML 100 ML IVPB ×3 (03:40→20:03)
[2021-11-17 05:46] LABS: Basophils Percent Auto 0.5 % (0.2-1.2); Eosinophils Absolute Auto 0.2 K/mm3 (0-0.3); Eosinophils Percent Auto 3.2 % (0-4.4); Hematocrit 32.6 % (37.0-47.0); Hemoglobin 10.3 g/dL (12.0-15.0); Immature Granulocyte Absolute 0.03 K/mm3 (0.00-0.031); Immature Granulocyte Percent A 0.4 % (0-0.5); Lymphocytes Absolute Auto 0.68 K/mm3 (0.9-3.2); Lymphocytes Percent Auto 9.2 % (18.3-44.2); Mean Corpuscular HGB Conc 31.6 g/dl (32-36); Mean Corpuscular Volume 91.8 fl (80-100); Mean Platelet Volume 10.2 fl (7.4-10.4); Monocytes Absolute Auto 0.7 K/mm3 (0.1-0.6); Neutrophils Absolute Auto 5.7 K/mm3 (1.3-6.7); Neutrophils Percent Auto 76.7 % (45.5-73.1); Platelet Count Result 248 k/mm3 (150-375); Red Blood Count 3.55 M/mm3 (4.2-5.4); Red Cell Distribution Width 13.5 % (11.5-14.5); White Blood Count 7.4 K/mm3 (4.5-10.0)
[2021-11-17 05:53] LABS: Alanine Aminotransferase 29 U/L (6-35); Albumin Level 3.3 g/dL (3.5-5.1); Alkaline Phosphatase 71 U/L (38-126); Anion Gap 4 mmol/L (8-16); Aspartate Amino Transferase 33 U/L (14-36); Bilirubin,Total 0.8 mg/dL (0.2-1.3); Blood Urea Nitrogen 33 mg/dL (7-17); Calcium 9.3 mg/dL (8.4-10.2); Carbon Dioxide 25 mmol/L (22-30); Chloride 110 mmol/L (98-107); Estimated Glomerular Filt Rate 43; Glucose 117 mg/dL (65-110); Magnesium 1.9 mg/dL (1.6-2.3); Potassium 4.3 mmol/L (3.4-5.0); Sodium 139 mmol/L (137-145)
[2021-11-17] MEDS: SODIUM CHLORIDE 0.9% IV 1,000 ML 50 ML IV CONT (06:50)
--- NOTE | 2021-11-17 09:35 | PCPTNOTE ---
Patient refused treatment this session, patient did not give reason why. Attempted to explain to patient what she would do while working with PT( lower extremity exercises and ambulate with walker), patient reported I am not at that stage yet. Explained to patient that we can just do what she can do and patient stated do you know what no means?
--- NOTE | 2021-11-17 10:31 | PCSTNOTE ---
The patient treatment was not able to be completed on 11/17 due to patient refusal, saying she was waiting for charanjit and this isn't the right time. Therapist attempted several different ways and patient consistently refused. Will plan to continue treatment per plan of care.
[2021-11-17] MEDS: LEVOTHYROXINE SODIUM INJ 100 MCG/5 ML VIAL 50 MCG IV PUSH (10:35)
[2021-11-17] MEDS: ENOXAPARIN 40 MG/0.4 ML SYRINGE SUB-Q (10:36)
[2021-11-17] MEDS: PANTOPRAZOLE SODIUM IV 40 MG VIAL IV PUSH ×2 (10:36→20:01)
[2021-11-17] MEDS: OLANZapine DISPERTAB 5 MG PO (10:42)
--- NOTE | 2021-11-17 12:16 | PCNFU ---
Nutrition Follow-Up Complete: Swallowing Difficulties R/T dysphagia AEB bed side swallow study Goal:Pt to meet >50% of estimated nutritional needs Patient is not meeting current goal. We will continue current goal. Pt current nutrition is NPO. Last recorded weight is 70.5 kg, up from admit 67.5 kg on admit. Bowel Motility:+BM 11/17 Labs Reviewed:Glu 117, GFR 43, BUN 33, Cr 1.2, Alb 3.3,Hgb 32.6, Hgb 10.3 Meds Noted:Protonix, NS, Atrovent, Lovenox Skin: WNL Additional Notes: Patient had MBS on 11/15-recommending non oral feedings. Dobbhoff tube feedings started of Jevity 1.2 at 10 ml/hr. Spoke with nursing today, patient has pulled Dobbhoff out. Spoke with MD today regarding nutritional status, No plans for replacing tube at this time. Speech continues working with patient. Will monitor labs, medication, wt, and reported intake every 3 days
--- NOTE | 2021-11-17 12:24 | PM.IMPN ---
Progress Note: A&P Assessment and Plan (1) Sepsis: Code(s): A41.9 - Sepsis, unspecified organism Status: Acute Assessment and Plan: as evidenced by elevated creatinine MEL on CKD stage 3 baseline creatinine around 1.6 admission creatinine of 2.1 altered mental status Started on gentle IV fluids for underlying sepsis and lactic acidosis. Lactic acidosis is resolved. broad-spectrum antibiotics started with vancomycin and aztreonam. cultures in progress , continue to follow cultures covid negative now discontinued vancomycin (2) Nonrheumatic aortic (valve) stenosis: Code(s): I35.0 - Nonrheumatic aortic (valve) stenosis Status: Acute Assessment and Plan: unchanged (3) Dysphagia: Qualifiers: Dysphagia type: oropharyngeal phase Qualified Code(s): R13.12 - Dysphagia, oropharyngeal phase Code(s): R13.10 - Dysphagia, unspecified Status: Acute Assessment and Plan: Swallow evaluation performed at bedside failed MBS performed today Still recommended NPO due to ongoing aspiration discussed with family regarding her ongoing dysphagia. Discussed placement of tube feeds for feeding and working with speech therapy to see if dysphagia with with short interval. If not need to go for PEG tube placement. Family agreeable for her Dobbhoff placement for do feet No prior history of recurrent pneumonias or known history of aspiration Dobbhoff fell off 11/17/2021: Patient refused to get put back again Re ordered speech therapy evaluation for swallow and repeat MBS to be planned hopefully has improved since she is more awake and alert (4) Status cardiac pacemaker: Code(s): Z95.0 - Presence of cardiac pacemaker Status: Acute Assessment and Plan: continue to monitor (5) Heart block AV second degree: Code(s): I44.1 - Atrioventricular block, second degree Status: Acute Assessment and Plan: status post pacemaker placement (6) Altered mental status: Code(s): R41.82 - Altered mental status, unspecified Status: Acute Assessment and Plan: likely secondary to sepsis supportive care (7) Elevated troponin I level: Code(s): R77.8 - Other specified abnormalities of plasma proteins Status: Acute Assessment and Plan: likely to be nonischemic myocardial injury. continue to monitor cardiology consultation (8) Acute kidney injury superimposed on CKD: Code(s): N17.9 - Acute kidney failure, unspecified; N18.9 - Chronic kidney disease, unspecified Status: Acute Assessment and Plan: likely to be pre renal azotemia Baseline creatinine 1.6 CKD stage 3 currently 2.1 MEL and CKD stage 3 likely prerenal for underlying sepsis (9) Congestive heart failure: Code(s): I50.9 - Heart failure, unspecified Status: Acute Assessment and Plan: Chest x-ray with the bilateral opacities pneumonia versus pulmonary edema BNP is elevated Lactic acidosis present on admission Will give gentle fluids. Stop once able to eat. Will have swallow evaluation for this Echocardiogram Pending (10) Gastroesophageal reflux disease: Code(s): K21.9 - Gastro-esophageal reflux disease without esophagitis Status: Acute Assessment and Plan: PPI as needed Plan She has not received her antipsychotic since admission. Will switched to Zyprexa Zydis sublingually in place of her Geodon Additional Plan DVT prophylaxis start on Lovenox as she never could get Eliquis Noted to be on Eliquis at home. Patient altered he had to be kept NPO. Swallow evaluation to start diet Code status do not resuscitate Subjective Date/time seen: 11/17/21 12:24 Interval history: HPI: ?this is an 86-year-old female with past medical history significant for GERD, hypothyroidism, dyslipidemia, aortic valve stenosis, restless leg syndrome, tremor, heart block second-degree status post pacemaker placemen
--- NOTE | 2021-11-17 13:12 | PCOTNOTE ---
Attempted to see patient this AM for OT, patient refused. Attempted to educate patient over importance of participating, with patient unable to reason with. RN present and aware patient refused.
--- NOTE | 2021-11-17 15:53 | WPDCDIQUERY2 ---
CDI Query Clarification Request 11/12 ER physician documented: Clinical Impression: ?Acute respiratory failure with hypoxia, Acute hyperkalemia Pulmonary edema Qualifiers: ?Chronicity:?acute?Qualified Code(s):?J81.0 - Acute pulmonary edema Pneumonia Qualifiers: ?Pneumonia type:?due to unspecified organism?Laterality:?bilateral?Lung location:?lower lobe of lung?Qualified Code(s):?J18.9 - Pneumonia, unspecified organism Chest x-ray shows opacities of the middle and lower lung zones consistent with pneumonia versus pulmonary edema. Blood cultures were drawn and patient started on broad spectrum antibiotics.? Patient was noted to be hypoxic while in the ED, was placed on 5L NC with improvement. Given breathing treatment and Lasix as well.? Please clarify if above Diagnosis: Have been ruled in or ruled out. If ruled in please add to problem list. -Acute Respiratory failure with hypoxia -Pulmonary edema -Pneumonia <Kristie Lane - Last Filed: 11/17/21 16:01> Provider Comments agree with all above acute resp failur with hypoxia, pulmonar edma pneumonia <Rosalio Ledesma MD - Last Filed: 11/17/21 16:37>
[2021-11-18] VITALS (10 sets, daily range): BP systolic 153–172; BP diastolic 60–66; PULSE 79–82; RESP 14–22; TEMP 36.6–37.2; O2SAT 92–100
[2021-11-18] MEDS: AZTREONAM 1 GM in DEXTROSE 5% IN WATER 50 ML 100 ML IVPB (03:00)
[2021-11-18 05:41] LABS: Basophils Absolute Auto 0.1 K/mm3 (0.0-0.1); Basophils Percent Auto 0.8 % (0.2-1.2); Eosinophils Absolute Auto 0.4 K/mm3 (0-0.3); Eosinophils Percent Auto 5.5 % (0-4.4); Hematocrit 35.4 % (37.0-47.0); Hemoglobin 11.3 g/dL (12.0-15.0); Immature Granulocyte Absolute 0.04 K/mm3 (0.00-0.031); Immature Granulocyte Percent A 0.5 % (0-0.5); Lymphocytes Absolute Auto 0.94 K/mm3 (0.9-3.2); Lymphocytes Percent Auto 12.3 % (18.3-44.2); Mean Corpuscular HGB Conc 31.9 g/dl (32-36); Mean Corpuscular Hemoglobin 29.2 pg (26-34); Mean Corpuscular Volume 91.5 fl (80-100); Monocytes Absolute Auto 0.7 K/mm3 (0.1-0.6); Monocytes Percent Auto 8.8 % (2.6-8.5); Neutrophils Absolute Auto 5.5 K/mm3 (1.3-6.7); Neutrophils Percent Auto 72.1 % (45.5-73.1); Platelet Count Result 282 k/mm3 (150-375); Red Blood Count 3.87 M/mm3 (4.2-5.4); Red Cell Distribution Width 13.8 % (11.5-14.5); White Blood Count 7.6 K/mm3 (4.5-10.0)
[2021-11-18 05:56] LABS: Alanine Aminotransferase 30 U/L (6-35); Albumin Level 3.8 g/dL (3.5-5.1); Alkaline Phosphatase 77 U/L (38-126); Anion Gap 8 mmol/L (8-16); Aspartate Amino Transferase 40 U/L (14-36); Bilirubin,Total 1.1 mg/dL (0.2-1.3); Blood Urea Nitrogen 27 mg/dL (7-17); Calcium 9.4 mg/dL (8.4-10.2); Carbon Dioxide 21 mmol/L (22-30); Chloride 111 mmol/L (98-107); Estimated Glomerular Filt Rate 43; Glucose 126 mg/dL (65-110); Magnesium 1.6 mg/dL (1.6-2.3); Potassium 4.3 mmol/L (3.4-5.0); Sodium 140 mmol/L (137-145)
[2021-11-18] MEDS: LEVOTHYROXINE SODIUM INJ 100 MCG/5 ML VIAL 50 MCG IV PUSH (06:15)
[2021-11-18] MEDS: PANTOPRAZOLE SODIUM IV 40 MG VIAL IV PUSH (08:47)
[2021-11-18] MEDS: OLANZapine DISPERTAB 5 MG PO (08:47)
[2021-11-18] MEDS: ENOXAPARIN 40 MG/0.4 ML SYRINGE SUB-Q (08:47)
[2021-11-18] MEDS: ALBUTEROL SULFATE NEB 2.5 MG/3 ML INH INHALATION ×2 (09:46→21:41)
[2021-11-18] MEDS: IPRATROPIUM BR 0.02% INH SOLN 0.5 MG/2.5 ML VIAL INHALATION ×2 (09:46→21:41)
--- NOTE | 2021-11-18 13:17 | PCPTNOTE ---
RN stated to hold on treatment today to wait for a hospice eval.
--- NOTE | 2021-11-18 13:25 | PCNFU ---
Nutrition Follow-Up Complete: Swallowing Difficulties R/T dysphagia AEB bed side swallow study Goal: Pt to meet >50% of estimated nutritional needs Patient has limited progress towards goal. We will continue current goal. Pt current nutrition is NPO. Last recorded weight is 67.1 kg, down from 67.5 kg on admit. Bowel Motility: +BM reported 11/17 Labs Reviewed:Glu 126, Cr 14.2,GFR 43, BUN 27, Hct 35.4,Hgb 11.3 Meds Noted:Protonix, Lovenox, Synthroid, NS Skin: WNL Additional Notes: Patient currently NPO. Patient is refusing NGT feedings. Plans for MBS to be canceled. Hospice consult. Will monitor labs, medication, wt, and reported intake every 3 days
--- NOTE | 2021-11-18 15:13 | PM.IMPN ---
Progress Note: A&P Assessment and Plan (1) Altered mental status: Code(s): R41.82 - Altered mental status, unspecified Status: Acute (2) Sepsis: Code(s): A41.9 - Sepsis, unspecified organism Status: Acute (3) Elevated troponin I level: Code(s): R77.8 - Other specified abnormalities of plasma proteins Status: Acute (4) Acute kidney injury superimposed on CKD: Code(s): N17.9 - Acute kidney failure, unspecified; N18.9 - Chronic kidney disease, unspecified Status: Acute (5) Nonrheumatic aortic (valve) stenosis: Code(s): I35.0 - Nonrheumatic aortic (valve) stenosis Status: Acute (6) Dysphagia: Qualifiers: Dysphagia type: oropharyngeal phase Qualified Code(s): R13.12 - Dysphagia, oropharyngeal phase Code(s): R13.10 - Dysphagia, unspecified Status: Acute (7) Status cardiac pacemaker: Code(s): Z95.0 - Presence of cardiac pacemaker Status: Acute (8) Heart block AV second degree: Code(s): I44.1 - Atrioventricular block, second degree Status: Acute (9) Congestive heart failure: Code(s): I50.9 - Heart failure, unspecified Status: Acute (10) Gastroesophageal reflux disease: Code(s): K21.9 - Gastro-esophageal reflux disease without esophagitis Status: Acute Additional Plan Patient was admitted for altered mental status. She was found to have sepsis and acute kidney injury. Sepsis felt to be related to possibly aspiration pneumonia. She did have a Dobbhoff in place but patient continues to pull this out. Mental status overall has improved with rehydration and improvement of her renal function. Unfortunately she does not have an IV so IV antibiotics on hold. IV fluids on hold. Family is deciding about hospice. They are meeting hospice tonight. Will discuss with speech therapy about a diet that would minimize aspiration. The family is aware that patient is high risk for aspiration pneumonia that might result in infection, respiratory failure and even . They are wanting to take the patient home. Modified barium swallow was canceled. Further recommendation as course dictates depending on family and patient decision. Subjective Date/time seen: 11/18/21 15:13 Interval history: 86yo female with history of aortic stenosis and bipolar disorder here for altered mental status. Patient complains f back pain but denies CP or SOB. She has been pulling out her IVs. Speech recommended MBS so this was ordered. Called by RN who stated the patient/family wanted to talk to someone from Hospice so MBS was held. Exam Narrative: AF 99.0 153/60 80 16 100% ra Gen - NARD Chest - bibasilar inspiratory crackles. nml RR CV - RRR S1/S2 Abd - Soft, NT Ext - No pedal edema Psych - Nml mood and affect Skin - Warm and dry Objective Data Vital Signs Vital Signs: Vital Signs - 24 hr 11/17/21 20:29 11/17/21 21:10 11/17/21 21:17 Temperature 98.1 F Pulse Rate 102 H 70 70 Respiratory Rate 18 16 Blood Pressure 153/74 H Pulse Oximetry 92 94 Oxygen Delivery Room Air 11/18/21 06:00 11/18/21 08:00 11/18/21 09:45 Temperature 98 F Pulse Rate 80 82 Respiratory Rate 22 H 16 Blood Pressure 172/66 H Pulse Oximetry 93 Oxygen Delivery Room Air 11/18/21 09:50 11/18/21 09:51 11/18/21 13:50 Temperature 99 F Pulse Rate 82 80 Respiratory Rate 16 16 Blood Pressure 153/60 H Pulse Oximetry 92 100 Oxygen Delivery Room Air Intake/Output Intake/Output: Intake & Output 11/15/21 11/16/21 11/17/21 11/18/21 23:59 23:59 23:59 23:59 Intake Total 1150 1150 1150 50 Output Total 575 700 800 Balance 575 450 350 50 Meds/Results Medications: Active Medications Generic Name Dose Route Start Last Admin Trade Name Freq PRN Reason Stop Dose Admin Acetaminophen 1,000 mg 11/15/21 09:00 11/18/21 08:45 Acetaminophen 500 Mg Tablet PO Not Given DAILY KENNETH
[2021-11-18] MEDS: NYSTATIN 100,000 UNITS/ML SUSP 5 ML ORAL.SUSP PO (17:55)
[2021-11-19 06:00] VITALS: BP 180/57; PULSE 80; RESP 20; TEMP 37.4; O2SAT 94
[2021-11-19 07:59] LABS: Glucose Point of Care 87 mg/dl (65-105)
[2021-11-19] MEDS: ALBUTEROL SULFATE NEB 2.5 MG/3 ML INH INHALATION ×2 (08:35→13:54)
[2021-11-19] MEDS: IPRATROPIUM BR 0.02% INH SOLN 0.5 MG/2.5 ML VIAL INHALATION ×2 (08:35→13:54)
[2021-11-19 08:36] VITALS: PULSE 72; RESP 12
[2021-11-19 08:43] VITALS: PULSE 71; RESP 12
[2021-11-19] MEDS: NYSTATIN 100,000 UNITS/ML SUSP 5 ML ORAL.SUSP PO (09:59)
[2021-11-19] MEDS: MULTIVITAMINS /C LUTEIN (CENTRUM SILVER) TABLET *BKC 1 TAB PO (10:00)
[2021-11-19] MEDS: amLODIPine BESYLATE 2.5 MG TABLET PO (10:00)
[2021-11-19] MEDS: ENOXAPARIN 40 MG/0.4 ML SYRINGE SUB-Q (10:00)
[2021-11-19] MEDS: ESCITALOPRAM OXALATE 10 MG TABLET 20 MG PO (10:00)
[2021-11-19] MEDS: OLANZapine DISPERTAB 5 MG PO (10:02)
[2021-11-19] MEDS: ACETAMINOPHEN 500 MG TABLET 1000 MG PO (10:05)
--- NOTE | 2021-11-19 10:09 | PM.DS ---
DS: Admitting Diagnosis Discharge Date 11/19/21 Admitting Diagnosis Altered mental status DS: Discharge Diagnosis Discharge Diagnosis (1) Altered mental status: Code(s): R41.82 - Altered mental status, unspecified Status: Acute (2) Sepsis: Code(s): A41.9 - Sepsis, unspecified organism Status: Acute (3) Elevated troponin I level: Code(s): R77.8 - Other specified abnormalities of plasma proteins Status: Acute (4) Acute kidney injury superimposed on CKD: Code(s): N17.9 - Acute kidney failure, unspecified; N18.9 - Chronic kidney disease, unspecified Status: Acute (5) Nonrheumatic aortic (valve) stenosis: Code(s): I35.0 - Nonrheumatic aortic (valve) stenosis Status: Acute (6) Dysphagia: Qualifiers: Dysphagia type: oropharyngeal phase Qualified Code(s): R13.12 - Dysphagia, oropharyngeal phase Code(s): R13.10 - Dysphagia, unspecified Status: Acute (7) Status cardiac pacemaker: Code(s): Z95.0 - Presence of cardiac pacemaker Status: Acute (8) Heart block AV second degree: Code(s): I44.1 - Atrioventricular block, second degree Status: Acute (9) Congestive heart failure: Code(s): I50.9 - Heart failure, unspecified Status: Acute (10) Gastroesophageal reflux disease: Code(s): K21.9 - Gastro-esophageal reflux disease without esophagitis Status: Acute DS: Summary Hospital Course Reason for hospitalization: 86yo female with history of aortic stenosis and bipolar disorder here for altered mental status. please see H&P for details Hospital Course: Patient was admitted for altered mental status.? She was found to have sepsis and acute kidney injury.? Sepsis felt to be related to possibly aspiration pneumonia.? She did have a Dobbhoff in place but patient continued to pull this out.? Mental status overall has improved with rehydration and improvement of her renal function.?She had dysphagia and were discussing feeding tube. Family however decided to move the patient to hospice care.?They are wanting to take the patient home.?The patient and family met with Hospice and arrangements made. Patient was discharged home on hospice care today. Status at Discharge Cognitive/behavioral status at discharge: Stable Time Spent with Patient Time attestation: Total time spent providing and/or coordinating discharge services: 32 minutes Time spent: Greater than 30 minutes Exam Narrative: AF 99.4 180/57 71 12 94% ra Gen - NARD Chest - clear anteriorly, nml RR CV - RRR S1/S2, +murmur RUSB Abd - Soft, NT Ext - No pedal edema Skin - Warm and dry DS: Data Data Completed and Pending Labs on day of discharge: Labs from last 24 hours 11/19/21 07:50 POC Capillary Glucose 87 Discharge Plan Discharge Attending physician on discharge: Romel Colon Consulting providers: Annika Mitchell ; Felicity Branham Discharging Clinician: Romel Colon Anticipated Discharge Date/Time: 11/19/21 10:16 Patient Disposition: Hospice - Home Activity: as tolerated Diet: other - see discharge instructions Discharge Instructions: Diet: Pureed with Honey thickened liquids Patient Instructions: Apixaban (By mouth), Pain Management (DC), Altered Mental Status (GEN) Stand Alone Forms: General Discharge Information Discharge Medications: Continued ziprasidone HCl 80 mg Capsule 80 mg PO BID Rx Instructions: give with food (meal/snack) amlodipine 2.5 mg Tablet 2.5 mg PO DAILY metoprolol succinate 25 mg Tablet Extended Release 24 Hr 25 mg PO DAILY levothyroxine 137 mcg tablet 137 mcg PO DAILY albuterol sulfate [Ventolin HFA] 90 mcg/actuation HFA aerosol inhaler 2 puff INHALATION Q8H PRN (Reason: Shortness Of Breath Or Wheezing) docusate sodium 50 mg Capsule 50 mg PO DAILY PRN (Reason: Constipation) patria
[2021-11-19 11:36] LABS: Glucose Point of Care 217 mg/dl (65-105)
--- NOTE | 2021-11-19 11:44 | PCSTNOTE ---
Therapist delivered packages of honey-thick thickener and practice cups to room along with list of safe swallowing strategies and suggestions. Patient asleep and family not present. VIKRAM Cat, was notified of delivery ansd will contact therapist if family arrives.
[2021-11-19 13:55] VITALS: PULSE 79; RESP 12
[2021-11-19 13:59] VITALS: PULSE 82; RESP 12
== END 2021-11-19 14:20 | disposition hospice, home (50) | DRG 871 ==
LOC: ANHED 19:44 → ANHIMU 22:22 → ANH3MED 11-17 19:51 → ANHIMU 11-20 12:33
PROVIDERS: Emergency Medicine; Internal Medicine; Physician Assistant; Admitting Provider Internal Medicine; Emergency Provider Emergency Medicine; PCP Family Medicine; Visit Provider Internal Medicine
DX: A41.9 Sepsis, unspecified organism (principal); J96.01 Acute respiratory failure with hypoxia; J69.0 Pneumonitis due to inhalation of food and vomit; N17.9 Acute kidney failure, unspecified; I35.0 Nonrheumatic aortic (valve) stenosis; Z95.0 Presence of cardiac pacemaker; I44.1 Atrioventricular block, second degree; Z20.822 Contact with and (suspected) exposure to COVID-19; R41.82 Altered mental status, unspecified; R77.8 Other specified abnormalities of plasma proteins; I50.9 Heart failure, unspecified; K21.9 Gastro-esophageal reflux disease without esophagitis; J45.909 Unspecified asthma, uncomplicated; E78.5 Hyperlipidemia, unspecified; N18.30 Chronic kidney disease, stage 3 unspecified; E03.9 Hypothyroidism, unspecified; G25.81 Restless legs syndrome; Z51.5 Encounter for palliative care; G25.1 Drug-induced tremor; T50.905A Adverse effect of unspecified drugs, medicaments and biological substances, initial encounter; R13.12 Dysphagia, oropharyngeal phase; E87.5 Hyperkalemia; R65.20 Severe sepsis without septic shock; Z87.891 Personal history of nicotine dependence; Z79.899 Other long term (current) drug therapy; Z85.42 Personal history of malignant neoplasm of other parts of uterus
CPT/HCPCS: 36415; 36600; 43752; 70450; 71045; 76775; 80048; 80053; 80307; 81001; 82140; 82375; 82565; 82570; 82805; 82948; 83050; 83605; 83690; 83735; 83880; 83935; 84100; 84300; 84484; 84540; 85025; 85610; 85730; 85999; 87040; 87086; 92526; 92610; 92611; 93005; 93306; 94640; 96365; 96367; 96372; 96375; 96376; 97161; 97165; 97535; 99285; A9270; C9113; C9803; G0378; J0131; J0692; J1200; J1630; J1644; J1650; J1940; J3370; J3475; J7030; U0003; U0005